=== PATIENT | male | born 1985 | race Caucasian/White ===

== ENCOUNTER 2024-02-14 09:28 | Outpatient (AMB) | payer BC, SELFPAY ==
--- NOTE | 2024-02-14 09:16 | MHC.PC.OV ---
Vital Signs 02/14/24 09:53 Height 6 ft 8.32 in Weight 278 lb BMI 30.3 BP 122/80 Blood Pressure Location Lt brachial Position Sitting Respiration 18 Pulse 74 Pulse Source Pulse Oximeter Temp 98.5 F Temp Source Oral Pulse Oximetry (%) 97 Oxygen Delivery Method Room Air Intake Visit Reasons: Discharge F[facility] 02[facility] Intake Note: New patient visit. Requesting refill on rescue inhaler. 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 Required: No Allergies gluten Allergy (Unknown, Verified 02/14/24 09:36) Unknown Medication List - Last Reconciled 02/14/24 by Maral Gould PA-C magnesium oxide 400 mg PO DAILY omeprazole 20 mg PO BID Tobacco use date assessed: 02/14/24 Dental Screening Dental Screen Date: 02/14/24 Did you have a dental visit in the last 12 months?: Yes Did you have a dental problem in the last 6 months where you did not have access to dental care?: No Was dental information given to patient?: Patient has dentist HPI Discharge F/U [facility] 02/10 HPI Details Patient is a 38-year-old male with a significant past medical history of elevated LFTs, alcoholic hepatitis, cirrhosis, celiac disease, hypertension, hyperlipidemia, GERD, restless leg syndrome, intermittent asthma, anxiety, ADD today to reestablish care. He was seen last March by myself after being discharged from the hospital following a lap cholecystectomy and common bile duct stone extraction with sphincterotomy. Psych: He was recently at an inpatient facility for his alcoholism. He went 12/11/23-01/11/24. He is currently living in sober house and following with a therapist. He took 90 days off of work and is trying hard to remain sober. He is currently struggling with sleeping and states that he would like to try something. He does not really want to see a psychiatrist but states that he will if he has to. He states while he was hospitalized a put him on Seroquel and Remeron but he did not like how this made him feel. States that they also trialed him on hydroxyzine which did nothing. GI: last seen by GI a few years ago but never really followed up with his cirrhosis. He was supposed to but states that he never really wanted to know what was going on. He states that the idea of having this makes him nervous. He states his abdomen feels fine. He denies any fluid retention, nausea or vomiting. He is trying to eat healthier. He still does experience heartburn in his on omeprazole twice a day. CV: Since quitting drinking his blood pressures have been normal. Today it is 122/80. PULM: With this season changes he does notice a little bit of his asthma at times. He states that he does not have any albuterol at home. [facility] Medical History (Updated 02/14/24 @ 13:15 by Maral Gould PA-C) GBS (Guillain [place] syndrome) Vitamin deficiency Steatosis, liver Snoring RLS (restless legs syndrome) Rib pain on right side PLMD (periodic limb movement disorder) Pleuritic pain Macrocytosis Insomnia Hyperlipidemia GERD (gastroesophageal reflux disease) JULIANNA (generalized anxiety disorder) Folic acid deficiency Elevated LFTs Elevated BP without diagnosis of hypertension Dyspnea Common bile duct stone Cirrhosis Celiac disease Axonal polyneuropathy ALT (SGPT) level raised Alcoholic hepatitis ADD (attention deficit disorder) Surgical History (Updated 02/14/24 @ 09:28 by Yany Hubbard [facility]) S/P laparoscopic cholecystectomy Social History Housing: House Patient Tobacco Use Status: Never used Tobacco e-Cigarette/Vaping Use: Currently Using Second Hand Smoke Exposure: No service: No Current occupational status: employed 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 How often do you have a drink containing alcohol?: Never (past) 3. How often do you have six or more drinks on one occasion?: Never Total Score: 0 Physical exam (Primary Care) Vital Signs: Last Vital Signs Temp 98.5 F 02/14/24 09:53 Pulse 74 02/14/24 09:53 Resp 18 02/14/24 09:53 BP 122/80 02/14/24 09:53 Pulse Ox 97 02/14/24 09:53 Oxygen Delivery Method Room Air 02/14/24 09:53 BMI result Body Mass Index 30.3 Tobacco/Smoking Status: Tobacco use Status Tobacco use date assessed 02/14/24 02/14/24 09:45 Patient Tobacco Use Status Never used Tobacco 02/14/24 09:45 e-Cigarette/Vaping Use Currently Using 02/14/24 09:45 Const Orientation/consciousness: patient oriented x3 HENMT Ears: hearing grossly normal bilaterally Neck Thyroid: Thyroid normal Lymphatic: no lymphadenopathy noted Resp Auscultation: clear to auscultation bilaterally Cardio Rate: regular rate Rhythm: regular rhythm Heart sounds: S1 normal heart sound present and S2 normal heart sound present GI Inspection: Yes normal to inspection Palpation (GI): Soft to palpation and Other GI palpation findings present (nontender, no cva tenderness) Auscultation: normoactive bowel sounds Rectal Exam - Male: Yes deferred Skin General skin exam: no rashes or lesions noted Neuro General: patient oriented x3, gait normal and no focal motor deficits Assessment and Plan Assessment & Plan (1) JULIANNA (generalized anxiety disorder): Code(s): F41.1 - Generalized anxiety disorder Plan: Currently following with a therapist and working on coping mechanisms. We will try trazodone to help him with sleep. Discussed risks and benefits and adverse effects of this medication. Follow up in 4-6 weeks. Sooner if needed. Referral to Behavioral Health placed. (2) Insomnia: Code(s): G47.00 - Insomnia, unspecified Plan: As above. (3) Cirrhosis: Code(s): K74.60 - Unspecified cirrhosis of liver Qualifiers: Hepatic cirrhosis type: alcoholic cirrhosis Plan: Ultrasound ordered. Labs ordered. Referral to GI. (4) Celiac disease: Code(s): K90.0 - Celiac disease Plan: As above (5) GERD (gastroesophageal reflux disease): Code(s): K21.9 - Gastro-esophageal reflux disease without esophagitis Qualifiers: Esophagitis bleeding: without hemorrhage Esophagitis presence: with esophagitis Qualified Code(s): K21.00 - Gastro-esophageal reflux disease with esophagitis, without bleeding Plan: Continue current regimen (6) Vitamin deficiency: Code(s): E56.9 - Vitamin deficiency, unspecified Plan: We will recheck labs today. (7) Alcohol abuse: Code(s): F10.10 - Alcohol abuse, uncomplicated Plan: Congratulated him on sobriety. Requests STD screening today as well but is asymptomatic. States that he did have a few encounters while he was drinking and wants to be sure. Orders: Orders Basic Metabolic Panel Today F41.1 - Generalized anxiety disorder, K74.60 - Unspecified cirrhosis of liver, K90.0 - Celiac disease Lipid Panel Today F41.1 - Generalized anxiety disorder, K74.60 - Unspecified cirrhosis of liver, K90.0 - Celiac disease Liver Panel Today F41.1 - Generalized anxiety disorder, K74.60 - Unspecified cirrhosis of liver, K90.0 - Celiac disease, R79.89 - Other specified abnormal findings of blood chemistry Magnesium Today E56.9 - Vitamin deficiency, unspecified, F41.1 - Generalized anxiety disorder, K21.00 - Gastro-esophageal reflux disease with esophagitis, without bleeding, K74.60 - Unspecified cirrhosis of liver, K90.0 - Celiac disease IRON PROFILE Today E56.9 - Vitamin deficiency, unspecified, F41.1 - Generalized anxiety disorder, K21.00 - Gastro-esophageal reflux disease with esophagitis, without bleeding, K74.60 - Unspecified cirrhosis of liver, K90.0 - Celiac disease Hepatitis C Antibody Today Z11.3 - Encounter for screening for infections with a predominantly sexual mode of transmission HIV Ab/Ag Today Z11.3 - Encounter for screening for infections with a predominantly sexual mode of transmission CT NG by PCR Today Z11.3 - Encounter for screening for infections with a predominantly sexual mode of transmission Complete Blood Count Auto Diff Today F41.1 - Generalized anxiety disorder, K74.60 - Unspecified cirrhosis of liver, K90.0 - Celiac disease TSH reflex Free T4 Today F41.1 - Generalized anxiety disorder, K74.60 - Unspecified cirrhosis of liver, K90.0 - Celiac disease UA CC w/rflx Micro + Cult Today F41.1 - Generalized anxiety disorder, K74.60 - Unspecified cirrhosis of liver, K90.0 - Celiac disease US abdomen complete Today F41.1 - Generalized anxiety disorder, K74.60 - Unspecified cirrhosis of liver, K90.0 - Celiac disease Vitamin B12 and Folate Today E56.9 - Vitamin deficiency, unspecified, F41.1 - Generalized anxiety disorder, K21.00 - Gastro-esophageal reflux disease with esophagitis, without bleeding, K74.60 - Unspecified cirrhosis of liver, K90.0 - Celiac disease Ferritin Today E56.9 - Vitamin deficiency, unspecified, F41.1 - Generalized anxiety disorder, K21.00 - Gastro-esophageal reflux disease with esophagitis, without bleeding, K74.60 - Unspecified cirrhosis of liver, K90.0 - Celiac disease Vitamin D 1,25 dihydroxy Today E56.9 - Vitamin deficiency, unspecified Syphilis Screen Today Z11.3 - Encounter for screening for infections with a predominantly sexual mode of transmission Referrals Behavioral Health Referral F10.10 - Alcohol abuse, uncomplicated, F41.1 - Generalized anxiety disorder, G47.00 - Insomnia, unspecified Medications: New omeprazole 20 mg PO BID 180 caps 3RF cetirizine (Zyrtec) 10 mg PO DAILY 90 tabs 2RF magnesium oxide 400 mg PO DAILY 90 caps 3RF trazodone 50 mg PO BEDTIME 90 tabs 2RF albuterol sulfate 90 mcg/actuation 2 puffs inhalation Q4-6H PRN 8.5 grams 0RF shortness of breath or wheezing Coding Level of Care Code Est Pt Level 4 (76726) Complex EM visit Add On G2211 Diagnoses JULIANNA (generalized anxiety disorder) F41.1 Insomnia G47.00 Cirrhosis K74.60 Hepatic cirrhosis type: alcoholic cirrhosis Celiac disease K90.0 Gastroesophageal reflux disease with esophagitis without hemorrhage K21.00 Esophagitis bleeding: without hemorrhage Esophagitis presence: with esophagitis Vitamin deficiency E56.9 Alcohol abuse F10.10
[2024-02-14 09:53] VITALS: BP 122/80; PULSE 74; RESP 18; TEMP 36.9; O2SAT 97; BMI 30.3
== END 2024-02-14 10:19 | disposition home or self-care (01) ==
PROVIDERS: PCP Internal Medicine; Visit Provider Physician Assistant
DX: F41.1 Generalized anxiety disorder (principal); G47.00 Insomnia, unspecified; K74.60 Unspecified cirrhosis of liver; K90.0 Celiac disease; K21.00 Gastro-esophageal reflux disease with esophagitis, without bleeding; E56.9 Vitamin deficiency, unspecified; F10.10 Alcohol abuse, uncomplicated
CPT/HCPCS: 99214

== ENCOUNTER 2024-02-14 10:31 | Outpatient (REF) | payer BC, SELFPAY ==
[2024-02-14 14:28] LABS: MANUAL DIFF FLAG NO
[2024-02-14 14:34] LABS: Appearance Urine Turbid; Color Urine Yellow; Glucose Urine UA Negative (Negative); Leukocyte Esterase Urine Negative (Negative); Nitrite Urine Negative (Negative); PH 5.5 (5.0-9.0); Specific Gravity - Urine >= 1.030 (1.005-1.025); Urine Blood Negative (Negative); Urine Ketones Trace mg/dL (Negative); Urine Protein Negative (Neg-Trace)
[2024-02-14 14:36] LABS: Basophils Percent Auto 0.8 % (0-2); Eosinophils Absolute Auto 0.1 X10*3/uL (0.0-0.4); Eosinophils Percent Auto 3.8 % (0-4); Hematocrit 43.1 % (42.0-52.0); Hemoglobin 15.2 g/dl (14.0-18.0); Imm Gran Abs Auto 0.01 X10*3/uL (0.00-0.03); Imm Gran Pct Auto 0.3 % (0.0-0.4); Lymphocytes Absolute Auto 1.1 X10*3/uL (1.2-4.9); Lymphocytes Percent Auto 29.8 % (20-40); Mean Corpuscular HGB Conc 35.3 g/dl (31.0-36.0); Mean Corpuscular Hemoglobin 33.2 pg (27.0-33.0); Mean Corpuscular Volume 94.1 fL (80.0-98.0); Mean Platelet Volume 10.3 fL (9.4-12.4); Monocytes Absolute Auto 0.4 X10*3/uL (0.1-1.2); Monocytes Percent Auto 10.7 % (2-11); Neutrophils Percent Auto 54.6 % (45-73); Platelet Count 140 X10*3/uL (160-400); Red Blood Count 4.58 X10*6/uL (4.60-5.80); Red Cell Distribution Width 11.7 % (11.0-16.0); White Blood Count 3.7 X10*3/uL (4.8-10.8)
[2024-02-14 14:58] LABS: Alanine Aminotransferase 17 U/L (0-40); Albumin Level 4.2 g/dL (3.5-5.0); Alkaline Phosphatase 41 U/L (39-117); Anion Gap 10 (12-20); Aspartate Amino Transferase 18 U/L (5-37); Bilirubin Direct 0.7 mg/dL (0.0-0.5); Bilirubin Total 2.6 mg/dL (0.0-1.0); Blood Urea Nitrogen 14 mg/dL (9-16); Calcium 9.7 mg/dL (8.4-10.2); Carbon Dioxide 28 mmol/L (22-29); Chloride 105 mmol/L (96-108); Cholesterol 210 mg/dL (<200); Estimated Glomerular Filt Rate > 60; Glucose Random 102 mg/dL (60-115); HDL Cholesterol 35 mg/dL (>40); Iron 205 mcg/dL (45-160); LDL Cholesterol Calculated 154 mg/dL (<100); Magnesium 1.9 mg/dL (1.6-2.6); Percent Iron Saturation 70 % (15-50); Potassium 4.1 mmol/L (3.3-5.1); Sodium 139 mmol/L (135-145); Total Iron Binding Capacity 294 mcg/dL (228-428); Total Protein 7.3 g/dL (6.5-8.0); Triglycerides 108 mg/dL (<150); Unsaturated Iron Binding 89 ug/dL
[2024-02-14 15:17] LABS: Vitamin B12 265 pg/mL (200-900)
[2024-02-14 15:18] LABS: Ferritin 267 ng/mL (20-250); TSH reflex Free T4 2.07 uIU/mL (0.32-4.0)
[2024-02-14 16:03] LABS: CT PCR NOT DETECTED (Not Detect.); NG PCR NOT DETECTED (Not Detect.)
[2024-02-15 08:09] LABS: HIV AB/AG Nonreactive (Nonreactive); HIV Num 1 0.06 S/CO (0.00-0.99); ~Hepatitis C Antibody Nonreactive (Nonreactive)
[2024-02-15 08:17] LABS: Syphilis Screen Nonreactive (Nonreactive)
[2024-02-18 13:28] LABS: VITAMIN D (1,25 OH) D3 33 pg/mL; Vit D (1,25-Dihydroxy) Total 33 pg/mL (18-72); Vitamin D (1,25 OH) D2 <8 pg/mL
== END 2024-02-14 10:32 | disposition home or self-care (01) ==
LOC: HO.WFDLDS 10:31
PROVIDERS: Visit Provider Physician Assistant
DX: K74.60 Unspecified cirrhosis of liver (principal); K90.0 Celiac disease; F41.1 Generalized anxiety disorder; Z11.3 Encounter for screening for infections with a predominantly sexual mode of transmission; K21.00 Gastro-esophageal reflux disease with esophagitis, without bleeding; E56.9 Vitamin deficiency, unspecified; R79.89 Other specified abnormal findings of blood chemistry
CPT/HCPCS: 80048; 80061; 80076; 81003; 82607; 82652; 82728; 82746; 83540; 83735; 84443; 85025; 86780; 86803; 87389; 87491; 87591

== ENCOUNTER 2024-02-22 08:39 | Outpatient (REF) | payer BC, SELFPAY ==
--- NOTE | ~2024-02-22 | US_ITS ---
EXAMINATION: US ABDOMEN COMPLETE CLINICAL INFORMATION: Unspecified cirrhosis of the liver. COMPARISON: None available. TECHNIQUE: Real-time imaging of the abdominal viscera. FINDINGS: PANCREAS: The visualized portions of the pancreas are unremarkable but the majority of the gland is obscured by bowel gas. ABDOMINAL AORTA: The mid abdominal aorta was obscured by bowel gas. There was no proximal or distal aneurysm. INFERIOR VENA CAVA: Visualized portions are normal. LIVER: The liver is enlarged measuring 19.1 cm in cephalocaudad dimension. The liver contour is normal. There is borderline increased liver parenchymal echogenicity suggesting hepatic steatosis. No focal hepatic lesion. There is no intrahepatic biliary duct dilatation seen. GALLBLADDER: Surgically absent. COMMON BILE DUCT: Normal in caliber measuring 0.3 cm in diameter. RIGHT KIDNEY: Normal. No hydronephrosis. No renal calculi or focal parenchymal lesions. The kidney measures 11.6 cm in maximum dimension. LEFT KIDNEY: Normal. No hydronephrosis. No renal calculi or focal parenchymal lesions. The kidney measures 13.9 cm in maximum dimension. SPLEEN: The spleen is enlarged measuring 17.4 cm in maximum dimension. FREE FLUID: None. US/US abdomen complete IMPRESSION: Hepatosplenomegaly with borderline increased echogenicity of the liver suggesting hepatic steatosis/parenchymal disease. Electronically signed by: Meet Li MD 02/28/2024 02:10 PM EDT
== END 2024-02-22 08:40 | disposition home or self-care (01) ==
LOC: HO.US 08:39
PROVIDERS: PCP Internal Medicine; Visit Provider Physician Assistant
DX: K74.60 Unspecified cirrhosis of liver (principal); K90.0 Celiac disease; F41.1 Generalized anxiety disorder
CPT/HCPCS: 76700

== ENCOUNTER 2024-03-21 15:10 | Outpatient (AMB) | payer BC, SELFPAY ==
--- NOTE | 2024-03-21 15:13 | MHC.PC.OV ---
Vital Signs 03/21/24 15:14 Height 6 ft 8.32 in Weight 276 lb 2 oz BMI 30.1 BP 118/82 Blood Pressure Location Rt brachial Position Sitting Respiration 14 Pulse 68 Pulse Source Pulse Oximeter Pulse Oximetry (%) 97 Oxygen Delivery Method Room Air Intake Visit Reasons: med Intake Note: Follow up Armature Tester Required: No Allergies gluten Allergy (Unknown, Verified 03/21/24 15:13) Unknown Medication List - Last Reconciled 03/21/24 by Maral Gould PA-C albuterol sulfate 90 mcg/actuation 2 puffs inhalation Q4-6H PRN cetirizine (Zyrtec) 10 mg PO DAILY magnesium oxide 400 mg PO DAILY montelukast (Singulair) 10 mg PO BEDTIME omeprazole 20 mg PO BID trazodone 200 mg (2 x 100 mg) PO BEDTIME 90 days Tobacco use date assessed: 02/14/24 Dental Screening Dental Screen Date: 02/14/24 HPI med HPI Details Patient is a 38-year-old male who presents today for a follow up. He states that he has been sober for 101 days. Psych: Has been referred to behavioral health. Trazodone 150 mg is effective but takes a bone hour so to work. He is wondering if we could increase the dose a little. GI: History of cirrhosis. Last liver ultrasound did show fatty liver. His LFTs have improved from [facility] labs. -he asked me today to check his antibodies for his history of celiac disease. States that recently he has been eating gluten and not having any issues with it. Heme: Last iron and ferritin is elevated. He states that he saw a print inspector at [facility] who told him he did not need to do anything for this. [facility] Medical History (Updated 03/21/24 @ 15:36 by Maral Gould PA-C) GBS (Guillain [place] syndrome) Vitamin deficiency Steatosis, liver Snoring RLS (restless legs syndrome) Rib pain on right side PLMD (periodic limb movement disorder) Pleuritic pain Macrocytosis Insomnia Hyperlipidemia GERD (gastroesophageal reflux disease) JULIANNA (generalized anxiety disorder) Folic acid deficiency Elevated LFTs Elevated BP without diagnosis of hypertension Dyspnea Common bile duct stone Cirrhosis Celiac disease Axonal polyneuropathy ALT (SGPT) level raised Alcoholic hepatitis ADD (attention deficit disorder) Surgical History (Updated 02/14/24 @ 09:28 by MAYELIN Swain S/P laparoscopic cholecystectomy Social History Housing: House Patient Tobacco Use Status: Never used Tobacco e-Cigarette/Vaping Use: Currently Using Second Hand Smoke Exposure: No service: No Current occupational status: employed 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 1. Little interest or pleasure in doing things: not at all 2. Feeling down, depressed, or hopeless: not at all 3. Trouble falling or staying asleep, or sleeping too much: several days 4. Feeling tired or having little energy: several days 5. Poor appetite or overeating: several days 6. Feeling bad about yourself - or that you are a failure or have let yourself or your family down: several days 7. Trouble concentrating on things, such as reading the newspaper or watching television: several days 8. Moving or speaking so slowly that other people could have noticed. Or the opposite - being so fidgety or restless that you have been moving around a lot more than usual: not at all 9. Thoughts that you would be better off or of hurting yourself in some way: not at all Total score: 5 Source: Developed by Drs. Quirino Schwab, Magy Patel, Rainer Jeffrey and colleagues, with an educational ana from [employer] ([email or web address]). Thrive Questionnaire I am a: Patient What is your living situation today?: I have a steady place to live Within the past 12 months, did the food you bought not last and you didn't have the money to get more?: Never true Within the past 12 months, did you worry whether your food would run out before you got money to buy more?: Never true Do you have trouble paying for medicines?: No Do you have trouble getting transportation to medical appointments?: No Do you have trouble paying your heating and electricity bill?: No Do you have trouble taking care of your child, family member or friend?: No Do you have trouble with day-to-day activities such as bathing, preparing meals, shopping, managing finances, etc.?: No Are you currently unemployed and looking for a job?: No Are you interested in more education?: Yes Please select the resources that you would like help with: None Currently or been in a relationship where the following occur: No concerns reported THRIVE Score: 0 AUDIT C Alcohol Use Questionnaire (AUDIT-C) 1. How often do you have a drink containing alcohol?: Never Total Score: 0 JULIANNA-7 AMB Questionnaire JULIANNA-7 Feeling nervous, anxious, or on edge: 1 = Several days Not being able to stop or control worryin = Several days Worrying too much about different things: 1 = Several days Trouble relaxin = Several days Being so restless that it is hard to sit still: 1 = Several days Becoming easily annoyed or irritable: 1 = Several days Feeling afraid as if something awful might happen: 0 = Not at all Total JULIANNA-7 score (0-4 normal; 5-9 mild; 10-14 moderate; 15-21 severe): 6 Source: Developed by Drs. Quirino Schwab, Magy Patel, Rainer Jeffrey and colleagues, with an educational ana from [email or web address] ([email or web address]). Physical exam (Primary Care) Vital Signs: Last Vital Signs Pulse 68 03/21/24 15:14 Resp 14 03/21/24 15:14 BP 118/82 03/21/24 15:14 Pulse Ox 97 03/21/24 15:14 Oxygen Delivery Method Room Air 03/21/24 15:14 BMI result Body Mass Index 30.1 Tobacco/Smoking Status: Tobacco use Status Tobacco use date assessed 02/14/24 03/21/24 15:20 Patient Tobacco Use Status Never used Tobacco 03/21/24 15:20 e-Cigarette/Vaping Use Currently Using 03/21/24 15:20 PHQ-9: PHQ-9 Score PHQ-9: Total score 5 03/21/24 15:20 Currently or been in a relationship where the following occur: No concerns reported Const Orientation/consciousness: patient oriented x3 HENMT Ears: hearing grossly normal bilaterally Neck Thyroid: Thyroid normal Lymphatic: no lymphadenopathy noted Resp Auscultation: clear to auscultation bilaterally Cardio Rate: regular rate Rhythm: regular rhythm Heart sounds: S1 normal heart sound present and S2 normal heart sound present GI Inspection: Yes normal to inspection Palpation (GI): Soft to palpation and Other GI palpation findings present (nontender, no cva tenderness) Auscultation: normoactive bowel sounds Rectal Exam - Male: Yes deferred Skin General skin exam: no rashes or lesions noted Neuro General: patient oriented x3, gait normal and no focal motor deficits Results Reviewed Results Reviewed: Laboratory Tests 02/14/24 10:37 WBC 3.7 L RBC 4.58 L Hgb 15.2 Hct 43.1 MCV 94.1 MCH 33.2 H Plt Count 140 L Sodium 139 Potassium 4.1 Chloride 105 Carbon Dioxide 28 Anion Gap 10 L BUN 14 Creatinine 0.91 Estimated GFR > 60 Iron 205 H % Saturation 70 H Ferritin 267 H Total Bilirubin 2.6 H Direct Bilirubin 0.7 H AST 18 ALT 17 Alkaline Phosphatase 41 Total Protein 7.3 Albumin 4.2 Triglycerides 108 Cholesterol 210 H LDL Cholesterol, Calc 154 H HDL Cholesterol 35 L FINDINGS: PANCREAS: The visualized portions of the pancreas are unremarkable but the majority of the gland is obscured by bowel gas. ABDOMINAL AORTA: The mid abdominal aorta was obscured by bowel gas. There was no proximal or distal aneurysm. INFERIOR VENA CAVA: Visualized portions are normal. LIVER: The liver is enlarged measuring 19.1 cm in cephalocaudad dimension. The liver contour is normal. There is borderline increased liver parenchymal echogenicity suggesting hepatic steatosis. No focal hepatic lesion. There is no intrahepatic biliary duct dilatation seen. GALLBLADDER: Surgically absent. COMMON BILE DUCT: Normal in caliber measuring 0.3 cm in diameter. RIGHT KIDNEY: Normal. No hydronephrosis. No renal calculi or focal parenchymal lesions. The kidney measures 11.6 cm in maximum dimension. LEFT KIDNEY: Normal. No hydronephrosis. No renal calculi or focal parenchymal lesions. The kidney measures 13.9 cm in maximum dimension. SPLEEN: The spleen is enlarged measuring 17.4 cm in maximum dimension. FREE FLUID: None. US/US abdomen complete IMPRESSION: Hepatosplenomegaly with borderline increased echogenicity of the liver suggesting hepatic steatosis/parenchymal disease. Electronically signed by: Meet Li MD 02/28/2024 02:10 PM EDT RP Coding Level of Care Code Est Pt Level 4 (09193) Complex EM visit Add On G2211 Diagnoses Cirrhosis K74.60 Hepatic cirrhosis type: alcoholic cirrhosis Iron excess E83.19 Celiac disease K90.0 Insomnia G47.00 Assessment & Plan Assessment & Plan (1) Cirrhosis: Code(s): K74.60 - Unspecified cirrhosis of liver Category: Medical Qualifiers: Hepatic cirrhosis type: alcoholic cirrhosis Plan: Labs ordered. Elastography ordered. Seeing GI 05/13 (2) Iron excess: Code(s): E83.19 - Other disorders of iron metabolism Category: Medical Plan: We will check hemochromatosis. Recheck labs today. If elevated we will refer to Hematology (3) Celiac disease: Code(s): K90.0 - Celiac disease Category: Medical Plan: Antibody testing ordered (4) Insomnia: Code(s): G47.00 - Insomnia, unspecified Category: Medical Plan: Increase trazodone. Follow up in 3 months. Sooner if needed. Patient understands and agrees with the plan. Orders: Orders IRON PROFILE Today E83.19 - Other disorders of iron metabolism, K74.60 - Unspecified cirrhosis of liver Ferritin Today E83.19 - Other disorders of iron metabolism, K74.60 - Unspecified cirrhosis of liver DNA Analysis Hemochromatosis Today E83.19 - Other disorders of iron metabolism, K74.60 - Unspecified cirrhosis of liver Basic Metabolic Panel Today E83.19 - Other disorders of iron metabolism, K74.60 - Unspecified cirrhosis of liver Liver Panel Today E83.19 - Other disorders of iron metabolism, K74.60 - Unspecified cirrhosis of liver US abdomen comp w elastography Today E83.19 - Other disorders of iron metabolism, F10.10 - Alcohol abuse, uncomplicated, K74.60 - Unspecified cirrhosis of liver Immunoglobulin A Today K90.0 - Celiac disease Transglutaminase Ab IgG Today K90.0 - Celiac disease Endomysial IgA rflx Titer Today K90.0 - Celiac disease Medications: New trazodone 200 mg (2 x 100 mg) PO BEDTIME 90 days 180 tabs 1RF Discontinued trazodone Discontinued Reason: Doctor's Order 50 mg PO BEDTIME 90 tabs 2RF
[2024-03-21 15:14] VITALS: BP 118/82; PULSE 68; RESP 14; O2SAT 97; BMI 30.1
== END 2024-03-21 15:40 | disposition home or self-care (01) ==
PROVIDERS: PCP Internal Medicine; Visit Provider Physician Assistant
DX: K74.60 Unspecified cirrhosis of liver (principal); E83.19 Other disorders of iron metabolism; K90.0 Celiac disease; G47.00 Insomnia, unspecified

== ENCOUNTER → 2024-03-21 15:10 | Outpatient (BNVA) | payer BC, SELFPAY | PROVIDERS: PCP Internal Medicine; Visit Provider Physician Assistant ==

== ENCOUNTER 2024-03-21 15:43 | Outpatient (REF) | payer BC, SELFPAY ==
[2024-03-21 18:06] LABS: Alanine Aminotransferase 26 U/L (0-40); Albumin Level 4.8 g/dL (3.5-5.0); Alkaline Phosphatase 50 U/L (39-117); Anion Gap 12 (12-20); Aspartate Amino Transferase 25 U/L (5-37); Bilirubin Direct 0.6 mg/dL (0.0-0.5); Bilirubin Total 3.7 mg/dL (0.0-1.0); Blood Urea Nitrogen 9 mg/dL (9-16); Calcium 9.7 mg/dL (8.4-10.2); Carbon Dioxide 30 mmol/L (22-29); Chloride 101 mmol/L (96-108); Estimated Glomerular Filt Rate > 60; Glucose Random 108 mg/dL (60-115); Iron 72 mcg/dL (45-160); Percent Iron Saturation 23 % (15-50); Potassium 3.6 mmol/L (3.3-5.1); Sodium 139 mmol/L (135-145); Total Iron Binding Capacity 316 mcg/dL (228-428); Unsaturated Iron Binding 244 ug/dL
[2024-03-21 18:22] LABS: Ferritin 267 ng/mL (20-250)
[2024-03-25 07:34] LABS: Immunoglobulin A 323 mg/dL (47-310)
[2024-03-26 08:02] LABS: Transglutaminase Ab IgG 49.1 U/mL
[2024-03-27 22:53] LABS: Endomysial IgA Antibody Negative (Negative)
== END 2024-03-21 15:44 | disposition home or self-care (01) ==
LOC: HO.WFDLDS 15:43
PROVIDERS: Visit Provider Physician Assistant
DX: K74.60 Unspecified cirrhosis of liver (principal); E83.19 Other disorders of iron metabolism; K90.0 Celiac disease; G47.00 Insomnia, unspecified; Z13.39 Encounter for screening examination for other mental health and behavioral disorders
CPT/HCPCS: 36415; 80048; 80076; 81256; 82728; 82784; 83540; 86231; 86364; 96127

== ENCOUNTER 2024-04-11 08:11 | Outpatient (REF) | payer BC, SELFPAY ==
--- NOTE | ~2024-04-11 | US_ITS ---
EXAMINATION: US COMPLETE ABDOMEN WITH LIVER ELASTOGRAPHY CLINICAL INFORMATION: Unspecified cirrhosis of liver. Alcohol abuse. COMPARISON: 02/22/2024. TECHNIQUE: Real-time imaging of the abdominal viscera. Noninvasive ultrasound liver fibrosis assessment is performed using Joan ElastPQ point quantification shear wave elastography (pSWE) with a C5-2 MHz transducer. Multiple elastography samples are obtained. FINDINGS: PANCREAS: Normal. The visualized pancreatic head and body are normal in appearance. The remainder of the pancreas is obscured from visualization by the overlying bowel gas. ABDOMINAL AORTA: The proximal and distal aortic segments are normal in caliber. Mid aspect is obscured by gas. INFERIOR VENA CAVA: Visualized portions are normal. LIVER: Echogenic with coarsened echotexture. Right hepatic lobe measures 18.8 cm. Left hepatic lobe measures 12.5 cm. No focal hepatic abnormality. Subtle lobulation of the hepatic contour. Portal flow is hepatopedal. Shear wave liver elastography median stiffness is 1.72 m/s (reference: normal median stiffness is 1.3 m/s or less). IQR/median stiffness to assess sampling precision is 0.10 (reference: good quality data set is IQR/median stiffness of 0.15 or less). This represents a good quality data set. GALLBLADDER: Post cholecystectomy. COMMON BILE DUCT: Normal in caliber measuring 0.7 cm in diameter. RIGHT KIDNEY: Normal. No hydronephrosis. No renal calculi or focal parenchymal lesions. The kidney measures 11.3 cm in maximum dimension. LEFT KIDNEY: Normal. No hydronephrosis. No renal calculi or focal parenchymal lesions. The kidney measures 12.6 cm in maximum dimension. SPLEEN: Enlarged. The spleen measures 17.1 cm in maximum dimension. No focal lesion. FREE FLUID: None. US/US abdomen comp w elastography IMPRESSION: 1. Mild hepatomegaly. Hepatic coarsened and increased echogenicity, with subtle nodularity of the hepatic contour suggesting cirrhotic changes with or without fatty infiltration. No focal hepatic abnormality or biliary dilatation. Cholecystectomy. 2. Liver elastography: Measurements are suggestive of compensated advanced chroniic liver disease but need further test for confirmation. 3. Splenomegaly, unchanged. 4. Remainder of the exam is normal. REFERENCE: Society of Radiologists in Ultrasound Liver Stiffness Thresholds (2020): LIVER STIFFNESS THRESHOLDS: *Liver Stiffness equal or less than 1.3 m/s: High probability of being normal. *Liver Stiffness less than 1.7 m/s: In the absence of other known clinical signs, rules out compensated advanced chronic liver disease. *Liver Stiffness 1.7-2.1 m/s: Suggestive of compensated advanced chronic liver disease but need further test for confirmation. *Liver Stiffness over 2.1 m/s: Rules in compensated advanced chronic liver disease. *Liver Stiffness over 2.4 m/s: Suggestive of clinically significant portal hypertension. QUALITY OF DATA SET: *IQR/Median value equal or less than 0.15 implies a quality data set. *IQR/Median value over 0.15 implies a poor quality data set. SIGNIFICANT CHANGE FROM PRIOR EXAM: Significant change if liver stiffness measurement is 10% or greater from prior exam. OTHER CONSIDERATIONS: The stage of liver fibrosis may be overestimated in the setting of acute hepatitis, liver inflammation, elevated liver function tests, hepatic vascular congestion, obstructive cholestasis, non-fasting state, and infiltrative diseases such as amyloidosis and lymphoma. In some patients with NAFLD, the liver stiffness thresholds for compensated advanced chronic liver disease may be lower. In causes other than viral hepatitis and NAFLD, liver stiffness thresholds are not well established. Electronically signed by: Adrián Macias MD 05/14/2024 12:46 PM [facility] [place], [place]
== END 2024-04-11 08:12 | disposition home or self-care (01) ==
LOC: HO.US 08:11
PROVIDERS: PCP Physician Assistant; Visit Provider Physician Assistant
DX: K74.60 Unspecified cirrhosis of liver (principal); E83.19 Other disorders of iron metabolism; F10.10 Alcohol abuse, uncomplicated
CPT/HCPCS: 76700; 76981

== ENCOUNTER → 2024-04-11 08:12 | Outpatient (BNV) | payer BC, SELFPAY | PROVIDERS: PCP Physician Assistant; Visit Provider Radiology Diagnostic Radiology | DX: K74.60 Unspecified cirrhosis of liver (principal); E83.19 Other disorders of iron metabolism; F10.10 Alcohol abuse, uncomplicated | CPT/HCPCS: 76700 ==

== ENCOUNTER 2024-05-13 08:52 | Outpatient (AMB) | payer BC, SELFPAY ==
--- NOTE | 2024-05-13 09:05 | A.OFFVIS_ITS ---
Vital Signs 05/13/24 09:06 Height 6 ft 8 in Weight 260 lb 2.327 oz BMI 28.6 BP 123/88 Blood Pressure Location Lt brachial Position Sitting Pulse 75 Intake Visit Reasons: cirrhosis of liver Intake Note: Satinder presents in the office as a new patient for Cirrhosis. CC: He states that he stopped drinking 5 months ago and was diagnosed with fatty liver - stopped drinking December 10 - trying to be healthy and get his liver back to normal! [employer] Required: No Allergies gluten Allergy (Unknown, Verified 05/13/24 09:06) Unknown HPI Comments Details: 38 y.o M with PMH of etOH use disorder in early remission, hx of guillian barre syndrome 2021, celiac dx, hx of gallstones s/p ERCP and CCY 2022, who is here for further evaluation of liver disease. Reports drinking daily almost 48 oz o chardonnay x years. Quit date December 11 2023. Had elastography in Mar at 3 month sobriety ewa but results pending. Thrombocytopenia on labs noted, LFTs normal except bili (indirect>direct). Had EUS/ERCP in 2022 without any varices at that time. Around 4-5 years ago was first diagnosed with etOH assoc with liver disease. Fam hx also + for hemochromatosis on maternal side. Pt reports seeing Dr Sotomayor many years ago for phlebotomy. Most recent iron studies with high ferritin but normal iron sat. [facility] Medical History (Updated 05/13/24 @ 10:38 by Mariel Casarez MD) GBS (Guillain [place] syndrome) Vitamin deficiency Steatosis, liver Snoring RLS (restless legs syndrome) Rib pain on right side PLMD (periodic limb movement disorder) Pleuritic pain Macrocytosis Insomnia Hyperlipidemia GERD (gastroesophageal reflux disease) JULIANNA (generalized anxiety disorder) Folic acid deficiency Elevated LFTs Elevated BP without diagnosis of hypertension Dyspnea Common bile duct stone Cirrhosis Celiac disease Axonal polyneuropathy ALT (SGPT) level raised Alcoholic hepatitis ADD (attention deficit disorder) Surgical History (Updated 05/13/24 @ 09:07 by KIM Holt) History of esophagogastroduodenoscopy (EGD) S/P laparoscopic cholecystectomy Social History Housing: House Patient Tobacco Use Status: Never used Tobacco e-Cigarette/Vaping Use: Currently Using Second Hand Smoke Exposure: No service: No Current occupational status: employed 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 Current occupational exposures/hazards: No Cognitive needs: No Hearing needs: No Vision needs: No Review of Systems Const All systems reviewed & are unremarkable except as noted in HPI and below Physical Exam Vital Signs: Last Vital Signs Pulse 75 05/13/24 09:06 BP 123/88 05/13/24 09:06 BMI result Body Mass Index 28.6 No apparent distress Nonicteric Abdomen soft, nondistended Alert and oriented x3, normal gait Assessment & Plan Assessment & Plan (1) Celiac disease: Code(s): K90.0 - Celiac disease Category: Medical (2) Chronic liver disease: Code(s): K76.9 - Liver disease, unspecified Category: Medical (3) 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 Hx of iron overload is unclear and will favor biopsy to assess both the degree of fibrosis as well as for iron deposition. Otherwise, encouraged on staying away from etOH completely. Plan: - Cont abstainence from etOH - Pt to confirm fam hx of HH at next vist - Lifestyle modifications to prevent non-etOH fatty liver disease progression discussed - CBC, CMP, INR in 4 weeks - Elastography results pending - If platelets do not recover and/or spleen enlarged on elasto, will need EGD for variceal screening - Will review indication for liver bx at next visit. In terms of celiac disease, dx in his 20s. Is not completely GF but occ gluten does not bother him. Vit D reviewed. Plan: - GFD - Dexa scan - Can consider EGD for repeat small bowel bx Follow up 1 month Orders: Orders XR DEXA axial skeleton Today K90.0 - Celiac disease Complete Blood Count no Diff 1 Month K76.9 - Liver disease, unspecified Comprehensive Met. Panel 1 Month K76.9 - Liver disease, unspecified Prothrombin Time INR 1 Month K76.9 - Liver disease, unspecified IRON PROFILE 1 Month K76.9 - Liver disease, unspecified Ferritin 1 Month K76.9 - Liver disease, unspecified Coding Level of Care Code New Pt Level 5 (38530) Complex EM visit Add On G2211 Diagnoses Celiac disease K90.0 Chronic liver disease K76.9 Hemochromatosis carrier Z14.8 Iron excess E83.19 Alcohol use disorder in remission F10.91
[2024-05-13 09:06] VITALS: BP 123/88; PULSE 75; BMI 28.6
== END 2024-05-13 10:13 | disposition home or self-care (01) ==
PROVIDERS: PCP Internal Medicine; Visit Provider Internal Medicine
DX: K90.0 Celiac disease (principal); K76.9 Liver disease, unspecified; E83.19 Other disorders of iron metabolism; Z14.8 Genetic carrier of other disease; F10.91 Alcohol use, unspecified, in remission
CPT/HCPCS: 99204

== ENCOUNTER 2024-05-22 08:05 | Outpatient (REF) | payer BC, SELFPAY ==
--- NOTE | ~2024-05-22 | MM_ITS ---
EXAMINATION: BONE DENSITOMETRY CLINICAL INDICATION: Celiac disease. COMPARISON: This is the patient's baseline examination. TECHNIQUE: Using a Pocketbook DXA System (software version: 13.1) manufactured by [employer], dual-energy x-ray absorptiometry was performed of the lumbar spine and left hip. The images are of good technical quality. Based on ISCD (International Society for Clinical Densitometry) standards of reporting, Z-scores instead of T-scores are reported in this male patient younger than age 50. Summary results are attached. FINDINGS: LEFT FEMUR, NECK: BMD 0.976 g/cm2, T-score -0.7, Z-score -0.9, Z-score within expected range for age. LEFT FEMUR, TOTAL: BMD 1.111 g/cm2, T-score 0.1, Z-score -0.2, Z-score within expected range for age. AP SPINE L1-L4: BMD 1.177 g/cm2, T-score -0.4, Z-score -1.1, Z-score within expected range for age. IDENTIFIED RISK FACTORS: Alcohol use, secondary osteoporosis (intestinal or bowel disease, not IBS), secondary osteoporosis (chronic liver disease). HISTORY OF FRACTURE: None listed. MEDICATIONS: Vitamin D. MM/XR DEXA axial skeleton IMPRESSION: 1. DIAGNOSIS: Based on the lowest Z-score value of -1.1 in the lumbar spine, the patient's bone density is within the expected range for age. 2. 10-YEAR FRACTURE RISK PREDICTION, FRAX: Not performed in this patient outside the age range of 50-90 years. 3. Treatment Recommendations: NOF guidelines recommend consideration for treatment in postmenopausal women and men age 50 and older presenting with the following: -A hip or vertebral (clinical or morphometric) fracture. -T-score less than or equal to -2.5 at the femoral neck or spine after appropriate evaluation to exclude secondary causes. -Low bone mass at the hip or spine and a 10-year fracture probability by FRAX of greater than or equal to 3% for hip fracture or greater than or equal to 20% for major osteoporotic fracture based on the [place] adapted WHO algorithm. 4. Other Recommendations: All treatment decisions require clinical judgment and consideration of individual patient factors, including patient preferences, comorbidities, previous drug use, risk factors not captured in the FRAX model (e.g. frailty, falls, vitamin D deficiency, increased bone turnover, interval significant decline in bone density) and possible under or overestimation of fracture risk by FRAX. FUTURE SCAN RECOMMENDATION: People with diagnosed cases of osteoporosis or at high risk for fracture should have regular bone mineral density tests. For patients eligible for Medicare, routine testing is allowed once every 2 years. The testing frequency can be increased to one year for patients who have rapidly progressing disease, those who are receiving or discontinuing medical therapy to restore bone mass, or have additional risk factors. Electronically signed by: Erika Thompson MD 05/22/2024 10:00 AM [facility]
== END 2024-05-22 08:06 | disposition home or self-care (01) ==
LOC: HO.MAMMO 08:05
PROVIDERS: PCP Physician Assistant; Visit Provider Internal Medicine
DX: K90.0 Celiac disease (principal)
CPT/HCPCS: 77080

== ENCOUNTER 2024-08-05 07:34 | Outpatient (REF) | payer BC, SELFPAY ==
[2024-08-05 07:47] LABS: MANUAL DIFF FLAG NO
[2024-08-05 08:04] LABS: Basophils Percent Auto 0.8 % (0-2); Eosinophils Absolute Auto 0.1 X10*3/uL (0.0-0.4); Eosinophils Percent Auto 2.4 % (0-4); Hemoglobin 16.2 g/dl (14.0-18.0); Imm Gran Abs Auto 0.01 X10*3/uL (0.00-0.03); Imm Gran Pct Auto 0.3 % (0.0-0.4); Lymphocytes Absolute Auto 1.1 X10*3/uL (1.2-4.9); Mean Corpuscular HGB Conc 34.5 g/dl (31.0-36.0); Mean Corpuscular Hemoglobin 31.8 pg (27.0-33.0); Mean Corpuscular Volume 92.3 fL (80.0-98.0); Mean Platelet Volume 9.9 fL (9.4-12.4); Monocytes Absolute Auto 0.3 X10*3/uL (0.1-1.2); Monocytes Percent Auto 8.4 % (2-11); Neutrophils Absolute Auto 2.2 x10*3/uL (2.0-8.3); Neutrophils Percent Auto 58.1 % (45-73); Platelet Count 155 X10*3/uL (160-400); Red Blood Count 5.09 X10*6/uL (4.60-5.80); Red Cell Distribution Width 13.4 % (11.0-16.0); White Blood Count 3.8 X10*3/uL (4.8-10.8)
[2024-08-05 08:09] LABS: Prothrombin Time 11.6 SEC (10.9-12.4)
[2024-08-05 08:36] LABS: Alanine Aminotransferase 44 U/L (0-40); Albumin Level 4.6 g/dL (3.5-5.0); Alkaline Phosphatase 46 U/L (39-117); Anion Gap 11 (12-20); Aspartate Amino Transferase 30 U/L (5-37); Bilirubin Direct 0.4 mg/dL (0.0-0.5); Bilirubin Total 1.4 mg/dL (0.0-1.0); Blood Urea Nitrogen 12 mg/dL (9-16); Carbon Dioxide 30 mmol/L (22-29); Chloride 105 mmol/L (96-108); Estimated Glomerular Filt Rate > 60; Glucose Random 100 mg/dL (60-115); Iron 105 mcg/dL (45-160); Percent Iron Saturation 36 % (15-50); Potassium 4.3 mmol/L (3.3-5.1); Sodium 142 mmol/L (135-145); Total Iron Binding Capacity 295 mcg/dL (228-428); Total Protein 8.1 g/dL (6.5-8.0); Unsaturated Iron Binding 190 ug/dL
[2024-08-05 08:57] LABS: Ferritin 147 ng/mL (20-250)
== END 2024-08-05 07:35 | disposition home or self-care (01) ==
LOC: HO.LAB 07:34
PROVIDERS: PCP Physician Assistant; Visit Provider Internal Medicine
DX: E83.19 Other disorders of iron metabolism (principal); R17 Unspecified jaundice
CPT/HCPCS: 36415; 80053; 80076; 82248; 82728; 83540; 85025; 85027; 85610

== ENCOUNTER 2024-08-07 16:03 | Outpatient (AMB) | payer BC, SELFPAY ==
--- NOTE | 2024-08-07 16:04 | A.OFFVIS_ITS ---
Vital Signs 08/07/24 16:06 Height 6 ft 8 in Weight 273 lb 5.971 oz BMI 30.0 BP 133/93 H Blood Pressure Location Lt brachial Position Sitting Pulse 75 Intake Visit Reasons: Cirrhosis of liver r/s from 06/17 Intake Note: Satinder presents in the office as a follow up for cirrhosis. CC: States that he has stopped drinking - 8 months ago!! He states that he is not having any symptoms just a follow up. Allergies gluten Allergy (Unknown, Verified 08/07/24 16:06) Unknown HPI Comments Details: 38 y.o M with PMH of etOH use disorder in early remission, hx of guillian barre syndrome 2021, celiac dx, hx of gallstones s/p ERCP and CCY 2022, who is here for further evaluation of liver disease. Reports drinking daily almost 48 oz o chardonnay x years. Quit date December 11 2023. Had elastography in Mar at 3 month sobriety ewa but results pending. Thrombocytopenia on labs noted, LFTs normal except bili (indirect>direct). Had EUS/ERCP in 2022 without any varices at that time. Around 4-5 years ago was first diagnosed with etOH assoc with liver disease. Fam hx also + for hemochromatosis on maternal side. Pt reports seeing Dr Sotomayor many years ago for phlebotomy. Most recent iron studies with high ferritin but normal iron sat. 08/07/24: Here for follow up. Reports has trouble following GFD as has long commute and not able to to do grocery shopping. Lives in a sober house. In terms of etOH use - will be 8 months sober on August 10. Reviewed elastography results which are indicative of advanced fibrosis vs early cirrhosis. However Fib 4 from labs yesterday is 1.17. Iron studies reviewed. Does not have evidence of HH at this time. [facility] Medical History GBS (Guillain [place] syndrome) Vitamin deficiency Steatosis, liver Snoring RLS (restless legs syndrome) Rib pain on right side PLMD (periodic limb movement disorder) Pleuritic pain Macrocytosis Insomnia Hyperlipidemia GERD (gastroesophageal reflux disease) JULIANNA (generalized anxiety disorder) Folic acid deficiency Elevated LFTs Elevated BP without diagnosis of hypertension Dyspnea Common bile duct stone Cirrhosis Celiac disease Axonal polyneuropathy ALT (SGPT) level raised Alcoholic hepatitis ADD (attention deficit disorder) Surgical History History of esophagogastroduodenoscopy (EGD) S/P laparoscopic cholecystectomy Social History Housing: House Patient Tobacco Use Status: Never used Tobacco e-Cigarette/Vaping Use: Currently Using Second Hand Smoke Exposure: No service: No Current occupational status: employed 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 Current occupational exposures/hazards: No Cognitive needs: No Hearing needs: No Vision needs: No Review of Systems Const All systems reviewed & are unremarkable except as noted in HPI and below Physical Exam Vital Signs: Last Vital Signs Pulse 75 08/07/24 16:06 BP 133/93 H 08/07/24 16:06 BMI result Body Mass Index 30.0 No apparent distress Nonicteric Abdomen soft, nondistended Alert and oriented x3, normal gait Assessment & Plan Assessment & Plan (1) Chronic liver disease: Code(s): K76.9 - Liver disease, unspecified Category: Medical (2) Celiac disease: Code(s): K90.0 - Celiac disease Category: Medical (3) Alcohol use disorder in remission: Code(s): F10.91 - Alcohol use, unspecified, in remission Category: Medical Plan At this time, elastography remains indicative of advanced fibrosis vs early cirrhosis whereas Fib 4 has improved. To keep in mind, elasto was done 4 months post sobriety so will favor cehcking another scan. High ferritin likely from etOH use and liver disease. No evidence of HH at this time. Will hold off liver bx at this time. Highcholesterol on labs - not on statin. Discussed that would reocmmend at least a mod intensity statin. Plan: - Cont abstinence from etOH - Start atorva 20 - Lifestyle modifications to prevent non-etOH fatty liver disease progression discussed - CBC, CMP, INR in 3 months - Elastography re-ordered to be done in September (6m from prior) - EGD to be set up In terms of celiac disease, dx in his 20s. Is not completely GF. Serology + also from dietary indiscretion. Plan: - GFD again emphasized. Can utilize grocery deliver services. - EGD as above -will get small bowel bx Follow up 3 months Orders: Orders Prothrombin Time INR 3 Months K76.9 - Liver disease, unspecified Comprehensive Met. Panel 3 Months K76.9 - Liver disease, unspecified US abdomen comp w elastography 2 Months K74.60 - Unspecified cirrhosis of liver Complete Blood Count no Diff 3 Months K76.9 - Liver disease, unspecified Medications: New atorvastatin 20 mg PO BEDTIME 90 days 90 tabs 1RF Refilled omeprazole 20 mg PO BID 180 caps 3RF Coding Level of Care Code Est Pt Level 4 (37882) Diagnoses Chronic liver disease K76.9 Celiac disease K90.0 Alcohol use disorder in remission F10.91
[2024-08-07 16:06] VITALS: BP 133/93; PULSE 75
== END 2024-08-07 16:40 | disposition home or self-care (01) ==
PROVIDERS: PCP Physician Assistant; Referring Provider Physician Assistant; Visit Provider Internal Medicine
DX: K76.9 Liver disease, unspecified (principal); K90.0 Celiac disease; F10.91 Alcohol use, unspecified, in remission
CPT/HCPCS: 99214

== ENCOUNTER → 2024-08-07 16:03 | Outpatient (BNVA) | payer BC, SELFPAY | PROVIDERS: PCP Physician Assistant; Visit Provider Internal Medicine ==

== ENCOUNTER 2024-10-07 07:49 | Outpatient (REF) | payer BC, SELFPAY ==
--- NOTE | ~2024-10-07 | US_ITS ---
EXAMINATION: US ABDOMEN COMPLETE WITH LIVER ELASTOGRAPHY HISTORY: K74.60 - Unspecified cirrhosis of liver TECHNIQUE: Real-time grayscale ultrasound imaging of the abdomen was performed and images were reviewed. COMPARISON: Comparison is made with the prior examination dated 04/11/2024. FINDINGS: Liver: The right lobe of the liver measures 18.3 cm in size. The left lobe of the liver measures 11.6 cm in size. The liver demonstrates normal homogeneous echotexture, but demonstrates a nodular contour, suggestive of cirrhosis. No focal mass or intrahepatic biliary ductal dilatation is identified. There is normal hepatopedal flow in the portal vein. Ultrasound elastography of the liver was performed with 10 separate measurements of the liver parenchyma with the patient in the supine position. Measurements were obtained approximately 2 cm below Jodi's capsule and perpendicular to the capsule. Images are of satisfactory quality. The median shear wave velocity is 0.88 m/s (previously 1.72 m/s although this was on a comparison from a different vendor not directly comparable). The interquartile range/median (IQR/median) is 0.23. Gallbladder and biliary tree: The gallbladder is surgically absent. The common bile duct is normal in caliber measuring 2 mm. Kidneys: The right kidney measures 12.4 cm in length. The left kidney measures 14.0 cm in length. The kidneys are unremarkable, without evidence of masses, hydronephrosis, or calculi. Pancreas: The pancreatic head, neck, and body are unremarkable. The pancreatic tail is obscured by bowel gas. Spleen: The spleen is enlarged, measuring 17.0 cm in length. Abdominal aorta and inferior vena cava: The visualized portions of the abdominal aorta and inferior vena cava are normal in caliber. There is no free fluid in the abdomen. US/US abdomen comp w elastography IMPRESSION: Cirrhosis of the liver. Splenomegaly. The median shear wave velocity in the liver is 0.88 m/s, corresponding to a median liver stiffness of 2.3 kPa. The IQR/median value is 0.23. This is indicative of a quality data set. Findings are indicative of a normal elastography value with a low likelihood of severe fibrosis or cirrhosis. REFERENCE: Society of Radiologists in Ultrasound Liver Stiffness Thresholds (2020): LIVER STIFFNESS THRESHOLDS: *Shear wave velocity less than 1.3 m/s (Liver Stiffness equal or less than 5 kPa): High probability of being normal. *Shear wave velocity less than 1.7 m/s (Liver Stiffness less than 9 kPa): In the absence of other known clinical signs, rules out compensated advanced chronic liver disease. *Shear wave velocity between 1.7-2.1 m/s (Liver Stiffness 9-13 kPa): Suggestive of compensated advanced chronic liver disease but need further test for confirmation. *Shear wave velocity between 2.1-2.4 m/s (Liver Stiffness 13-17 kPa): Rules in compensated advanced chronic liver disease. *Shear wave velocity greater than 2.4 m/s (Liver Stiffness over 17 kPa): Suggestive of clinically significant portal hypertension. QUALITY OF DATA SET: *IQR/Median value equal or less than 0.15 implies a quality data set. *IQR/Median value over 0.15 implies a poor quality data set. SIGNIFICANT CHANGE FROM PRIOR EXAM: Significant change if liver stiffness measurement is 10% or greater from prior exam. OTHER CONSIDERATIONS: The stage of liver fibrosis may be overestimated in the setting of acute hepatitis, liver inflammation, elevated liver function tests, hepatic vascular congestion, obstructive cholestasis, non-fasting state, and infiltrative diseases such as amyloidosis and lymphoma. In some patients with NAFLD, the liver stiffness thresholds for compensated advanced chronic liver disease may be lower. In causes other than viral hepatitis and NAFLD, liver stiffness thresholds are not well established. Electronically signed by: Quirino Starr MD 10/09/2024 10:02 AM EDT
== END 2024-10-07 07:50 | disposition home or self-care (01) ==
LOC: HO.US 07:49
PROVIDERS: PCP Physician Assistant; Visit Provider Internal Medicine
DX: K74.60 Unspecified cirrhosis of liver (principal)
CPT/HCPCS: 76700; 76981

== ENCOUNTER → 2024-10-07 07:51 | Outpatient (BNV) | payer BC, SELFPAY | PROVIDERS: PCP Physician Assistant; Visit Provider Radiology Diagnostic Radiology | DX: K74.60 Unspecified cirrhosis of liver (principal) | CPT/HCPCS: 76700; 76981 ==

== ENCOUNTER 2024-11-05 14:54 | Outpatient (REF) | payer BC, SELFPAY ==
[2024-11-05 15:37] LABS: Hematocrit 43.8 % (42.0-52.0); Mean Corpuscular HGB Conc 36.5 g/dl (31.0-36.0); Mean Corpuscular Hemoglobin 32.5 pg (27.0-33.0); Mean Corpuscular Volume 88.8 fL (80.0-98.0); Mean Platelet Volume 10.5 fL (9.4-12.4); Platelet Count 165 X10*3/uL (160-400); Red Blood Count 4.93 X10*6/uL (4.60-5.80); Red Cell Distribution Width 12.4 % (11.0-16.0); White Blood Count 7.9 X10*3/uL (4.8-10.8)
[2024-11-05 15:53] LABS: INTERNATIONAL NORM RATIO 1.1 (0.9-1.1); Prothrombin Time 13.1 SEC (10.9-12.4)
[2024-11-05 16:29] LABS: Alanine Aminotransferase 32 U/L (0-40); Albumin Level 4.9 g/dL (3.5-5.0); Alkaline Phosphatase 52 U/L (39-117); Anion Gap 12 (12-20); Aspartate Amino Transferase 30 U/L (5-37); Bilirubin Total 3.9 mg/dL (0.0-1.0); Blood Urea Nitrogen 11 mg/dL (9-16); Calcium 9.5 mg/dL (8.4-10.2); Carbon Dioxide 25 mmol/L (22-29); Chloride 105 mmol/L (96-108); Estimated Glomerular Filt Rate > 60; Glucose Random 102 mg/dL (60-115); Potassium 3.9 mmol/L (3.3-5.1); Sodium 138 mmol/L (135-145); Total Protein 7.7 g/dL (6.5-8.0)
== END 2024-11-05 14:55 | disposition home or self-care (01) ==
LOC: HO.LAB 14:54
PROVIDERS: PCP Physician Assistant; Visit Provider Internal Medicine
DX: K76.9 Liver disease, unspecified (principal)
CPT/HCPCS: 36415; 80053; 85027; 85610

== ENCOUNTER → 2024-11-06 15:55 | Outpatient (AMB) | payer BC, SELFPAY ==
--- NOTE | 2024-11-06 15:57 | MHC.OFFVIS ---
Vital Signs 11/06/24 15:59 Height 6 ft 8 in Weight 266 lb 12.149 oz BMI 29.3 BP 133/95 H Blood Pressure Location Lt brachial Position Sitting Pulse 72 Intake Visit Reasons: 3 mo f/u Intake Note: Satinder presents in the office as a 3 month follow up. CC: States that his concerns are with his blood work - bilirubin has doubled. He has been taking a potent liver detoxifyer and he is wondering if that is what elevating the labs. He has changed his life and lifestyle and wants to be healthy. Is concerne dthat Jaundice and cirrhosis were mentioned. 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 Reports drinking daily almost 48 oz o chardonnay x years. Quit date December 11 2023. Had elastography in Mar at 3 month sobriety ewa but results pending. Thrombocytopenia on labs noted, LFTs normal except bili (indirect>direct). Had EUS/ERCP in 2022 without any varices at that time. Around 4-5 years ago was first diagnosed with etOH assoc with liver disease. Fam hx also + for hemochromatosis on maternal side. Pt reports seeing Dr Sotomayor many years ago for phlebotomy. Most recent iron studies with high ferritin but normal iron sat. 08/07/24: Here for follow up. Reports has trouble following [employer] as has long commute and not able to to do grocery shopping. Lives in a sober house. In terms of etOH use - will be 8 months sober on August 10. Reviewed elastography results which are indicative of advanced fibrosis vs early cirrhosis. However Fib 4 from labs yesterday is 1.17. Iron studies reviewed. Does not have evidence of HH at this time. 11/06/24: Here for routine follow up. Almost a year sober from etOH. Quit date 12/11/23. Labs reviewed. Bili up. Thinks could be from the liver detox supplement he was taking. No abd pain, N, V. Elastography reviewed. Pt understandably frustrated with little progress. However, reviewe dthat overall labs look better. Thrombocytopenia has resolved! transaminases better. PFSH Medical History GBS (Guillain [place] syndrome) Vitamin deficiency Steatosis, liver Snoring RLS (restless legs syndrome) Rib pain on right side PLMD (periodic limb movement disorder) Pleuritic pain Macrocytosis Insomnia Hyperlipidemia GERD (gastroesophageal reflux disease) JULIANNA (generalized anxiety disorder) Folic acid deficiency Elevated LFTs Elevated BP without diagnosis of hypertension Dyspnea Common bile duct stone Cirrhosis Celiac disease Axonal polyneuropathy ALT (SGPT) level raised Alcoholic hepatitis ADD (attention deficit disorder) Surgical History History of esophagogastroduodenoscopy (EGD) S/P laparoscopic cholecystectomy Social History Housing: House Patient Tobacco Use Status: Never used Tobacco e-Cigarette/Vaping Use: Currently Using Second Hand Smoke Exposure: No service: No Current occupational status: employed 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 Current occupational exposures/hazards: No Cognitive needs: No Hearing needs: No Vision needs: No Review of Systems Const All systems reviewed & are unremarkable except as noted in HPI and below Physical Exam Vital Signs: Last Vital Signs Pulse 72 11/06/24 15:59 BP 133/95 H 11/06/24 15:59 BMI result Body Mass Index 29.3 No apparent distress Nonicteric Abdomen soft, nondistended Alert and oriented x3, normal gait Assessment & Plan Assessment & Plan (1) Chronic liver disease: Code(s): K76.9 - Liver disease, unspecified Category: Medical (2) Alcohol use disorder in remission: Code(s): F10.91 - Alcohol use, unspecified, in remission Category: Medical Plan At this time, elastography remains indicative of advanced fibrosis vs early cirrhosis whereas Fib 4 has improved. In terms of HH, homozygous for H63D but iron studies normal. Will hold off liver bx at this time. Plan: - Cont abstinence from etOH - Cont atorva 20 - Lifestyle modifications to prevent non-etOH fatty liver disease progression discussed - liver profile in 3 months - Will also check lipids - US Abd due 03/2025 - EGD to be set up Follow up after egd Orders: Orders Liver Panel 3 Months K76.9 - Liver disease, unspecified Bilirubin Direct 3 Months K76.9 - Liver disease, unspecified Lipid Panel 3 Months K76.9 - Liver disease, unspecified Coding Level of Care Code Est Pt Level 4 (10845) Diagnoses Chronic liver disease K76.9 Alcohol use disorder in remission F10.91
[2024-11-06 15:59] VITALS: BP 133/95; PULSE 72; BMI 29.3
== END ==
LOC: HO.HGI 15:56
PROVIDERS: PCP Physician Assistant; Visit Provider Internal Medicine
DX: K76.9 Liver disease, unspecified (principal); F10.91 Alcohol use, unspecified, in remission
CPT/HCPCS: 99214

== ENCOUNTER 2024-12-20 10:16 | Outpatient (REF) | payer BC, SELFPAY ==
[2024-12-20 11:22] LABS: Alanine Aminotransferase 29 U/L (0-40); Albumin Level 4.9 g/dL (3.5-5.0); Alkaline Phosphatase 44 U/L (39-117); Aspartate Amino Transferase 25 U/L (5-37); Cholesterol 163 mg/dL (<200); HDL Cholesterol 35 mg/dL (>40); Total Protein 7.7 g/dL (6.5-8.0); Triglycerides 115 mg/dL (<150)
== END 2024-12-20 10:17 | disposition home or self-care (01) ==
LOC: HO.LAB 10:16
PROVIDERS: PCP Physician Assistant; Visit Provider Internal Medicine
DX: K76.9 Liver disease, unspecified (principal)
CPT/HCPCS: 36415; 80061; 80076; 82248

== ENCOUNTER 2025-01-09 10:37 | Outpatient (AMB) | payer BC, SELFPAY ==
--- NOTE | 2025-01-09 10:43 | A.OFFPC_ITS ---
Vital Signs 01/09/25 10:48 Height 6 ft 8 in Weight 258 lb 2 oz BMI 28.4 BP 122/82 Blood Pressure Location Lt brachial Position Sitting Respiration 16 Pulse 75 Pulse Source Pulse Oximeter Pulse Oximetry (%) 98 Oxygen Delivery Method Room Air Intake Visit Reasons: kicking/snoring when asleep Intake Note: Snoring Allergies gluten Allergy (Unknown, Verified 01/09/25 10:44) Unknown Medication List - Last Reconciled 01/09/25 by Maral Gould PA-C albuterol sulfate 90 mcg/actuation 2 puffs inhalation Q4-6H PRN cholecalciferol (vitamin D3) PO diphenhydramine HCl (Unisom SleepGels) 50 mg PO BEDTIME magnesium oxide 400 mg PO DAILY melatonin 10 mg PO BEDTIME PRN omeprazole 20 mg PO BID thiamine HCl (vitamin B1) 100 mg PO BID Tobacco use date assessed: 02/14/24 Dental Screening Dental Screen Date: 02/14/24 HPI kicking/snoring when asleep HPI Details Patient is a 39-year-old male who presents today for a follow up. 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 Psych: Has been referred to behavioral health for his anxiety and insomnia. He states that medications that have been tried have not been effective. He wonders if his insomnia is related to sleep apnea or movement issues. He does not like having a CPAP machine. He has followed in the past and was told that he did have sleep apnea but this was about 4 5 years ago. GI: History of cirrhosis and states that he is struggling to fully understand the cirrhosis. He does not like having cirrhosis and wants this removed from his chart. He is following with GI. At times he is developing yellowing of the eyes but it does typically resolve.. CV: He does not like that he was put on statins as he thinks the statins may contribute to further liver damage. He stopped the atorvastatin and states that he has been off of it for about a month now and when he just that his lipids it was without being on the medication. He has been working very hard on a low-fat diet and overall healthy diet Heme: Last iron was normal and ferritin was elevated. It was felt in the past by [facility] that he did not have hemochromatosis and there was no need for treatment. [facility] Medical History (Updated 01/10/25 @ 10:25 by Maral Gould PA-C) GBS (Guillain [place] syndrome) Vitamin deficiency Steatosis, liver Snoring RLS (restless legs syndrome) Rib pain on right side PLMD (periodic limb movement disorder) Pleuritic pain Macrocytosis Insomnia Hyperlipidemia GERD (gastroesophageal reflux disease) JULIANNA (generalized anxiety disorder) Folic acid deficiency Elevated LFTs Elevated BP without diagnosis of hypertension Dyspnea Common bile duct stone Cirrhosis Celiac disease Axonal polyneuropathy ALT (SGPT) level raised Alcoholic hepatitis ADD (attention deficit disorder) Surgical History History of esophagogastroduodenoscopy (EGD) S/P laparoscopic cholecystectomy Social History (Updated 01/09/25 @ 11:32 by Yany Hubbard CMA) Housing: House Alcohol intake: former Comment: quit 13 months ago Patient Tobacco Use Status: Never used Tobacco e-Cigarette/Vaping Use: Currently Using Second Hand Smoke Exposure: No service: No Current occupational status: employed 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 1. Little interest or pleasure in doing things: not at all 2. Feeling down, depressed, or hopeless: not at all 3. Trouble falling or staying asleep, or sleeping too much: several days 4. Feeling tired or having little energy: not at all 5. Poor appetite or overeating: not at all 6. Feeling bad about yourself - or that you are a failure or have let yourself or your family down: not at all 7. Trouble concentrating on things, such as reading the newspaper or watching television: more than half the days 8. Moving or speaking so slowly that other people could have noticed. Or the opposite - being so fidgety or restless that you have been moving around a lot more than usual: not at all 9. Thoughts that you would be better off or of hurting yourself in some way: not at all Total score: 3 Depression Screening Interpretation: Negative Depression Screening Done: Yes 13861 - PHQ-9 Billing: Yes Source: Developed by Drs. Quirino Schwab, Magy B.W. Rainer Patel and colleagues, with an educational ana from [employer]. Thrive Questionnaire Date Thrive assessed: 03/21/24 I am a: Patient What is your living situation today?: I have a steady place to live Within the past 12 months, did the food you bought not last and you didn't have the money to get more?: Never true Within the past 12 months, did you worry whether your food would run out before you got money to buy more?: Never true Do you have trouble paying for medicines?: No Do you have trouble getting transportation to medical appointments?: No Do you have trouble paying your heating and electricity bill?: No Do you have trouble taking care of your child, family member or friend?: No Do you have trouble with day-to-day activities such as bathing, preparing meals, shopping, managing finances, etc.?: No Are you currently unemployed and looking for a job?: No Are you interested in more education?: Yes Please select the resources that you would like help with: None Currently or been in a relationship where the following occur: No concerns reported THRIVE Score: 0 AUDIT C Alcohol Use Questionnaire (AUDIT-C) 1. How often do you have a drink containing alcohol?: Never Total Score: 0 JULIANNA-7 AMB Questionnaire JULIANNA-7 Feeling nervous, anxious, or on edge: 0 = Not at all Not being able to stop or control worryin = Not at all Worrying too much about different things: 0 = Not at all Trouble relaxin = Not at all Being so restless that it is hard to sit still: 0 = Not at all Becoming easily annoyed or irritable: 0 = Not at all Feeling afraid as if something awful might happen: 0 = Not at all Total JULIANNA-7 score (0-4 normal; 5-9 mild; 10-14 moderate; 15-21 severe): 0 Source: Developed by Drs. Quirino Schwab, Rainer Neal and colleagues, with an educational ana from [employer]. JULIANNA-7 Assessment Billing JULIANNA-7 Assessment Tool: JULIANNA-7 Assessment 03189 Physical exam (Primary Care) Vital Signs: Last Vital Signs Pulse 75 01/09/25 10:48 Resp 16 01/09/25 10:48 BP 122/82 01/09/25 10:48 Pulse Ox 98 01/09/25 10:48 Oxygen Delivery Method Room Air 01/09/25 10:48 BMI result Body Mass Index 28.4 Tobacco/Smoking Status: Tobacco use Status Tobacco use date assessed 02/14/24 01/09/25 10:43 Patient Tobacco Use Status Never used Tobacco 01/09/25 10:43 e-Cigarette/Vaping Use Currently Using 01/09/25 10:43 PHQ-9: PHQ-9 Score PHQ-9: Total score 3 01/09/25 10:51 Depression Screening Interpretation: Negative Thrive Assessment: Date of Thrive Assessment Date Thrive assessed 03/21/24 01/09/25 10:43 Currently or been in a relationship where the following occur: No concerns reported Const Orientation/consciousness: patient oriented x3 HENMT Ears: hearing grossly normal bilaterally Neck Thyroid: Thyroid normal Lymphatic: no lymphadenopathy noted Resp Auscultation: clear to auscultation bilaterally Cardio Rate: regular rate Rhythm: regular rhythm Heart sounds: S1 normal heart sound present and S2 normal heart sound present GI Inspection: Yes normal to inspection Palpation (GI): Soft to palpation and Other GI palpation findings present (nontender, no cva tenderness) Auscultation: normoactive bowel sounds Rectal Exam - Male: Yes deferred Skin General skin exam: no rashes or lesions noted Neuro General: patient oriented x3, gait normal and no focal motor deficits Results Reviewed Results Reviewed: Laboratory Tests 11/05/24 12/20/24 15:06 10:28 WBC 7.9 RBC 4.93 Hgb 16.0 Hct 43.8 Plt Count 165 Creatinine 0.87 Estimated GFR > 60 Random Glucose 102 Total Bilirubin 2.4 H Direct Bilirubin 0.5 AST 25 ALT 29 Alkaline Phosphatase 44 Total Protein 7.7 Albumin 4.9 Triglycerides 115 Cholesterol 163 LDL Cholesterol, Calc 105 H HDL Cholesterol 35 L US/US abdomen comp w elastography IMPRESSION: Cirrhosis of the liver. Splenomegaly. Coding Level of Care Code Est Pt Level 4 (72481) Complex EM visit Add On G2211 Diagnoses Cirrhosis K74.60 Hepatic cirrhosis type: alcoholic cirrhosis Iron excess E83.19 Family history of heart disease Z82.49 Insomnia G47.00 Snoring R06.83 Hyperlipidemia E78.5 Additional Codes PHQ-9 - 01831 - PHQ-9 Billing: Yes ([id number]) JULIANNA-7 Assessment Billing - JULIANNA-7 Assessment Tool: JULIANNA-7 Assessment 70211 ([id number]) Assessment & Plan Assessment & Plan (1) Cirrhosis: Code(s): K74.60 - Unspecified cirrhosis of liver Category: Medical Qualifiers: Hepatic cirrhosis type: alcoholic cirrhosis Plan: We spent extensive time discussing cirrhosis today and I did discuss with him that this is permanent scarring of the liver. I have congratulated him on the sobriety. Advised him to follow with GI as discussed (2) Iron excess: Code(s): E83.19 - Other disorders of iron metabolism Category: Medical Plan: We will check labs today (3) Family history of heart disease: Code(s): Z82.49 - Family history of ischemic heart disease and other diseases of the circulatory system Category: Medical Plan: He does have a family history of heart disease in his father and did just have an abnormal CT calcium scan of the his heart. Requests this today. Understands that insurance may not cover this. No chest pain or shortness on breath. Ordered today. (4) Insomnia: Code(s): G47.00 - Insomnia, unspecified Category: Medical Plan: Referral to sleep Medicine. Sleep study ordered. (5) Snoring: Code(s): R06.83 - Snoring Category: Medical Plan: As above. (6) Hyperlipidemia: Code(s): E78.5 - Hyperlipidemia, unspecified Category: Medical Plan: We will check lipids with him being off of atorvastatin in a few months. Orders: Orders Complete Blood Count Auto Diff 01/09/25 E83.19 - Other disorders of iron metabolism, K74.60 - Unspecified cirrhosis of liver Lipid Panel 01/09/25 E83.19 - Other disorders of iron metabolism, K74.60 - Unspecified cirrhosis of liver CT Coronary Calcium Score 01/09/25 Z82.49 - Family history of ischemic heart disease and other diseases of the circulatory system RT home sleep study 01/09/25 R06.81 - Apnea, not elsewhere classified Ferritin 01/09/25 E83.19 - Other disorders of iron metabolism, K74.60 - Unspecified cirrhosis of liver Basic Metabolic Panel 01/09/25 E83.19 - Other disorders of iron metabolism, K74.60 - Unspecified cirrhosis of liver Liver Panel 01/09/25 E83.19 - Other disorders of iron metabolism, K74.60 - Unspecified cirrhosis of liver Referrals 2 Sleep Medicine Referral G47.00 - Insomnia, unspecified, R06.83 - Snoring
[2025-01-09 10:48] VITALS: BP 122/82; PULSE 75; RESP 16; O2SAT 98; BMI 28.4
== END 2025-01-09 11:31 | disposition home or self-care (01) ==
LOC: HO.HMCFM 10:38
PROVIDERS: PCP Physician Assistant; Visit Provider Physician Assistant
DX: K74.60 Unspecified cirrhosis of liver (principal); E83.19 Other disorders of iron metabolism; Z82.49 Family history of ischemic heart disease and other diseases of the circulatory system; G47.00 Insomnia, unspecified; R06.83 Snoring; E78.5 Hyperlipidemia, unspecified

== ENCOUNTER → 2025-01-09 10:37 | Outpatient (BNVA) | payer BC, SELFPAY | PROVIDERS: PCP Physician Assistant; Visit Provider Physician Assistant | DX: R06.83 Snoring (principal); E83.19 Other disorders of iron metabolism; K74.60 Unspecified cirrhosis of liver; G47.00 Insomnia, unspecified; E78.5 Hyperlipidemia, unspecified; Z82.49 Family history of ischemic heart disease and other diseases of the circulatory system | CPT/HCPCS: 96127 ==

== ENCOUNTER 2025-01-30 08:14 | Outpatient (AMB) | payer BC, SELFPAY ==
--- NOTE | 2025-01-30 08:19 | A.OFFVIS_ITS ---
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 He states that medications that have been tried have not been effective. He wonders if his insomnia is related to sleep apnea or movement issues. He does not like having a CPAP machine. He has followed in the past and was told that he did have sleep apnea but this was about 4-5 years ago. Patient had sleep study done about 2-3 years ago through [facility]. Accompanied by: Self / Same As Patient Allergies gluten Allergy (Unknown, Verified 01/30/25 08:24) Unknown HPI Comments Details: 39 year old male with h/o GBS post covid presents for sleep apnea evaluation. [facility] Feb 2022 to Jun 2022 hospitalized for GBS, post 2nd covid vaccination (moderna). he was started on IVIG and then discharged 3 months later. He lost 35lbs. 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 He started drinking alcohol and sleep aides to help him sleep during the day. He snores loudly per his g/f and she refuses to sleep in the same room as him. He has RLS, kicking, flailing and thrashing behavior at night. His entire body jerks and he wakes himself up due to an uncomfortable sensation in his calves bilaterally. He wake up and stretches his legs, and kneads the soles of his feet, calves and legs as they are always stiff and tight. He denies pins, needles, burning or tingling in his feet. His works is high stress and can be emotionally overwhelmed, though his mood is usually stable. He denies morning headaches. He has tried, taking 4- 10mg melatonin gummies, with z-quil, L thianine, Unisom 40mg po at bedtime and continues to have fragmented sleep. He denies smoking and using alcohol for over 6 months now, he is being followed by GI for Endoscopy. [facility] Medical History GBS (Guillain [place] syndrome) Vitamin deficiency Steatosis, liver Snoring RLS (restless legs syndrome) Rib pain on right side PLMD (periodic limb movement disorder) Pleuritic pain Macrocytosis Insomnia Hyperlipidemia GERD (gastroesophageal reflux disease) JULIANNA (generalized anxiety disorder) Folic acid deficiency Elevated LFTs Elevated BP without diagnosis of hypertension Dyspnea Common bile duct stone Cirrhosis Celiac disease Axonal polyneuropathy ALT (SGPT) level raised Alcoholic hepatitis ADD (attention deficit disorder) Surgical History History of esophagogastroduodenoscopy (EGD) S/P laparoscopic cholecystectomy Social History Housing: House Alcohol intake: former Comment: quit 13 months ago Patient Tobacco Use Status: Never used Tobacco e-Cigarette/Vaping Use: Currently Using Second Hand Smoke Exposure: No service: No Current occupational status: employed 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 Current occupational exposures/hazards: No Cognitive needs: No Hearing needs: No Vision needs: No Physical Exam Vital Signs: Last Vital Signs Pulse 63 01/30/25 08:21 BP 122/88 01/30/25 08:21 Pulse Ox 99 01/30/25 08:21 Oxygen Delivery Method Room Air 01/30/25 08:21 BMI result Body Mass Index 27.7 Const General: cooperative and no acute distress Nutritional Appearance: average body habitus Orientation/consciousness: patient oriented x3 HEENT Face and sinus: Yes face symmetric Teeth and gingiva: other (mallampti score is 3) Eyes Pupils: Equal, round and reactive pupils present Neck Neck: Yes full ROM Resp Effort & Inspection: normal respiratory effort and able to speak in complete sentences Neuro General: patient oriented x3 and moves all extremities Cranial nerves: Yes Equal, round and reactive pupils present, Yes Normal accommodation reflex present, Yes Nystagmus not present, Yes Normal facial strength present, Yes Midline tongue present, Yes Symmetric palate elevation present, Yes Ability to bilaterally rotate head present and Yes Ability to bilaterally elevate shoulders present Cognition (Neuro): normal cognition Gait exam (Neuro): Normal gait present Motor exam (neuro): 5/5 motor strength present throughout and Normal motor muscle tone present throughout Deep tendon reflexes (DTR's): Right triceps reflex intensity grade: 2+, Left triceps reflex intensity grade: 2+, Rt Biceps (C5, C6): 2+, Left biceps reflex intensity grade: 2+, Right brachioradialis reflex intensity grade: 2+, Left brachioradialis reflex intensity grade: 2+, Right patellar reflex intensity grade: 2+ and Left patellar reflex intensity grade: 2+ Coordination: [id number] test normal Psych Appearance: grossly normal Thought process: Normal thought process present Thought content: Normal thought content present Results Reviewed Results Reviewed: Cirrhosis of the liver. Splenomegaly. Cholecystectomy, absent gall bladder. Labs reviewed with patient. The median shear wave velocity in the liver is 0.88 m/s, corresponding to a median liver stiffness of 2.3 kPa. The IQR/median value is 0.23. This is indicative of a quality data set. Findings are indicative of a normal elastography value with a low likelihood of severe fibrosis or cirrhosis. Assessment & Plan Assessment & Plan (1) Excessive daytime sleepiness: Code(s): G47.19 - Other hypersomnia Category: Medical (2) Fatigue: Code(s): R53.83 - Other fatigue Category: Medical Qualifiers: Fatigue type: chronic, unspecified Qualified Code(s): R53.82 - Chronic fatigue, unspecified (3) Numbness and tingling of both feet: Code(s): R20.0 - Anesthesia of skin; R20.2 - Paresthesia of skin Category: Medical (4) Numbness and tingling of both legs: Code(s): R20.0 - Anesthesia of skin; R20.2 - Paresthesia of skin Category: Medical Plan PSG to r/o OMID R/O RLS / PLMD? numbness tingling of bilateral lower extremities with stiffness and Axonal polyneuropathy H/O GBS Labs to r/o deficiencies for fatigue Orders: Orders TSH reflex Free T4 Today R53.83 - Other fatigue Methylmalonic Acid Today G47.9 - Sleep disorder, unspecified, R53.83 - Other fatigue Homocysteine Today G47.9 - Sleep disorder, unspecified, R53.83 - Other fatigue Magnesium Today R53.83 - Other fatigue Vitamin B6 Today R20.0 - Anesthesia of skin, R20.2 - Paresthesia of skin Vitamin B1 Today R20.0 - Anesthesia of skin, R20.2 - Paresthesia of skin RT PSG in-lab sleep study Today G47.19 - Other hypersomnia Vitamin D 25-OH Total Today R53.83 - Other fatigue Vitamin B12 and Folate Today R53.83 - Other fatigue Ferritin Today R53.83 - Other fatigue IRON PROFILE Today G47.9 - Sleep disorder, unspecified, R53.83 - Other fatigue Patient Instructions: Sleep Hygiene provided: set a scheduled bedtime and wake time to help regulate the circadian rhythm and balance the release of pituitary hormones. Sleep in a dark room, temperatures below 68 degrees, and no devices n bed. Limit caffeinated products 6 hours prior to bed, and limit fluids 2-4 hours prior to bed. Gentle night yoga, diffusing essential oils, and playing soft music can be relaxing. Coding Level of Care Code New Pt Level 4 (65019) Diagnoses Excessive daytime sleepiness G47.19 Chronic fatigue R53.82 Fatigue type: chronic, unspecified Numbness and tingling of both feet R20.0; R20.2 Numbness and tingling of both legs R20.0; R20.2 Sleep Questionnaire Difficulty falling asleep: Yes Difficulty staying asleep?: Yes Number of arousals: 3 Snoring: Yes Witnessed apneas: Yes Gasping arousals: Yes Nocturia: No GERD: Yes Vivid dreams: No Acting out dreams: No Abnormal behavior in sleep: Yes Abnormal movements in sleep: Yes Morning headaches: No Excessive daytime sleepiness: No Daytime naps: No Restless legs: Yes Hallucinations: No Sleep paralysis: No Drop attacks: No Sleep Study: Yes CPAP: No
[2025-01-30 08:21] VITALS: BP 122/88; PULSE 63; O2SAT 99; BMI 27.7
== END 2025-01-30 09:23 | disposition home or self-care (01) ==
LOC: HO.HSMC 08:14
PROVIDERS: PCP Physician Assistant; Visit Provider Physician Assistant Medical
DX: G47.19 Other hypersomnia (principal); R53.82 Chronic fatigue, unspecified; R20.0 Anesthesia of skin; R20.2 Paresthesia of skin
CPT/HCPCS: 99204

== ENCOUNTER 2025-03-18 16:51 | Outpatient (REF) | payer BC, SELFPAY ==
[2025-03-18 17:32] LABS: Iron 103 mcg/dL (45-160); Magnesium 1.7 mg/dL (1.6-2.6); Percent Iron Saturation 35 % (15-50); Total Iron Binding Capacity 298 mcg/dL (228-428); Unsaturated Iron Binding 195 ug/dL
[2025-03-18 17:47] LABS: Ferritin 109 ng/mL (20-250)
[2025-03-18 18:00] LABS: Folate 3.5 ng/mL (> or = 4.0); Vitamin B12 244 pg/mL (200-900)
== END 2025-03-18 16:52 | disposition home or self-care (01) ==
LOC: HO.LAB 16:51
PROVIDERS: PCP Physician Assistant; Visit Provider Physician Assistant Medical
DX: Z13.21 Encounter for screening for nutritional disorder (principal); Z13.0 Encounter for screening for diseases of the blood and blood-forming organs and certain disorders involving the immune mechanism; R53.83 Other fatigue; R20.0 Anesthesia of skin; R20.2 Paresthesia of skin; G47.9 Sleep disorder, unspecified
CPT/HCPCS: 36415; 82306; 82607; 82728; 82746; 83090; 83540; 83735; 83921; 84207; 84425; 84443

== ENCOUNTER 2025-03-20 12:52 | Outpatient (REF) | payer BC, SELFPAY ==
[2025-03-20 14:33] LABS: MANUAL DIFF FLAG NO
[2025-03-20 14:36] LABS: Hematocrit 42.8 % (42.0-52.0); Hemoglobin 15.1 g/dl (14.0-18.0); Imm Gran Abs Auto 0.02 X10*3/uL (0.00-0.03); Imm Gran Pct Auto 0.5 % (0.0-0.4); Lymphocytes Absolute Auto 1.5 X10*3/uL (1.2-4.9); Mean Corpuscular HGB Conc 35.3 g/dl (31.0-36.0); Mean Corpuscular Hemoglobin 32.3 pg (27.0-33.0); Mean Corpuscular Volume 91.5 fL (80.0-98.0); NRBC Abs Auto 0.000 X10*3/uL (0.0-0.012); NRBC Pct Auto 0.0 /100WBC (0.0-0.2); Platelet Count 151 X10*3/uL (160-400); Red Blood Count 4.68 X10*6/uL (4.60-5.80); White Blood Count 3.8 X10*3/uL (4.8-10.8)
[2025-03-20 15:17] LABS: Alanine Aminotransferase 25 U/L (0-40); Albumin Level 4.6 g/dL (3.5-5.0); Alkaline Phosphatase 39 U/L (39-117); Anion Gap 11 (12-20); Aspartate Amino Transferase 28 U/L (5-37); Blood Urea Nitrogen 6 mg/dL (9-16); Calcium 9.4 mg/dL (8.4-10.2); Carbon Dioxide 31 mmol/L (22-29); Chloride 104 mmol/L (96-108); Cholesterol 167 mg/dL (<200); Estimated Glomerular Filt Rate > 60; HDL Cholesterol 34 mg/dL (>40); Potassium 4.0 mmol/L (3.3-5.1); Sodium 142 mmol/L (135-145); Total Protein 7.1 g/dL (6.5-8.0); Triglycerides 111 mg/dL (<150)
[2025-03-20 15:53] LABS: Ferritin 107 ng/mL (20-250)
== END 2025-03-20 12:53 | disposition home or self-care (01) ==
LOC: HO.WFDLDS 12:52
PROVIDERS: PCP Physician Assistant; Visit Provider Physician Assistant
DX: F41.1 Generalized anxiety disorder (principal); K74.60 Unspecified cirrhosis of liver; E83.19 Other disorders of iron metabolism; G47.00 Insomnia, unspecified; F98.8 Other specified behavioral and emotional disorders with onset usually occurring in childhood and adolescence; R59.0 Localized enlarged lymph nodes; F10.91 Alcohol use, unspecified, in remission
CPT/HCPCS: 36415; 80048; 80061; 80076; 82728; 85025

== ENCOUNTER 2025-03-20 12:52 | Outpatient (AMB) | payer BC, SELFPAY ==
--- NOTE | 2025-03-20 12:54 | MHC.PC.OV ---
Vital Signs 03/20/25 12:58 Height 6 ft 8 in Weight 257 lb 2 oz BMI 28.2 BP 134/88 Blood Pressure Location Lt brachial Position Sitting Respiration 14 Pulse 70 Pulse Source Pulse Oximeter Pulse Oximetry (%) 98 Oxygen Delivery Method Room Air Intake Visit Reasons: Med review /strattera Intake Note: Discuss medication to help focus. 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 HEENT: Has had a persistent enlarged lymph node on the right side of his neck x1 year. Psych: Has been referred to behavioral health for his anxiety and insomnia. He states that medications that have been tried have not been effective. He is scheduled for a sleep study. He would like to try hydroxyzine for sleep. He is open now to seeing a psychiatrist. He also would like to try Strattera to help him with his ADD. It used to help him in the past. GI: History of cirrhosis. He is following with GI. He is supposed to have an ultrasound this month but has not heard. I do not see anything ordered in the chart. He is also supposed to be scheduled for in an endoscopy. CV: He does not want to be on medication for cholesterol at this point. He has been working very hard on a low-fat diet and overall healthy diet Neuro: Following closely with Neurology. Has an upcoming appointment. [facility] Medical History GBS (Guillain [place] syndrome) Vitamin deficiency Steatosis, liver Snoring RLS (restless legs syndrome) Rib pain on right side PLMD (periodic limb movement disorder) Pleuritic pain Macrocytosis Insomnia Hyperlipidemia GERD (gastroesophageal reflux disease) JULIANNA (generalized anxiety disorder) Folic acid deficiency Elevated LFTs Elevated BP without diagnosis of hypertension Dyspnea Common bile duct stone Cirrhosis Celiac disease Axonal polyneuropathy ALT (SGPT) level raised Alcoholic hepatitis ADD (attention deficit disorder) Surgical History History of esophagogastroduodenoscopy (EGD) S/P laparoscopic cholecystectomy Social History Housing: House Alcohol intake: former Comment: quit 13 months ago Patient Tobacco Use Status: Never used Tobacco e-Cigarette/Vaping Use: Currently Using Second Hand Smoke Exposure: No service: No Current occupational status: employed 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 Current occupational exposures/hazards: No Cognitive needs: No Hearing needs: No Vision needs: No Questionnaire Thrive Questionnaire Date Thrive assessed: 01/09/25 I am a: Patient What is your living situation today?: I have a steady place to live Within the past 12 months, did the food you bought not last and you didn't have the money to get more?: Never true Within the past 12 months, did you worry whether your food would run out before you got money to buy more?: Never true Do you have trouble paying for medicines?: No Do you have trouble getting transportation to medical appointments?: No Do you have trouble paying your heating and electricity bill?: No Do you have trouble taking care of your child, family member or friend?: No Do you have trouble with day-to-day activities such as bathing, preparing meals, shopping, managing finances, etc.?: No Are you currently unemployed and looking for a job?: No Are you interested in more education?: Yes Please select the resources that you would like help with: None Currently or been in a relationship where the following occur: No concerns reported THRIVE Score: 0 Physical exam (Primary Care) Vital Signs: Last Vital Signs Pulse 70 03/20/25 12:58 Resp 14 03/20/25 12:58 BP 134/88 03/20/25 12:58 Pulse Ox 98 03/20/25 12:58 Oxygen Delivery Method Room Air 03/20/25 12:58 BMI result Body Mass Index 28.2 Tobacco/Smoking Status: Tobacco use Status Tobacco use date assessed 03/20/25 03/20/25 12:56 Patient Tobacco Use Status Never used Tobacco 03/20/25 12:56 e-Cigarette/Vaping Use Currently Using 03/20/25 12:56 Thrive Assessment: Date of Thrive Assessment Date Thrive assessed 01/09/25 03/20/25 12:56 Currently or been in a relationship where the following occur: No concerns reported Const Orientation/consciousness: patient oriented x3 HENMT Ears: hearing grossly normal bilaterally Neck Thyroid: Thyroid normal Lymphatic: lymphadenopathy (Right cervical) Resp Auscultation: clear to auscultation bilaterally Cardio Rate: regular rate Rhythm: regular rhythm Heart sounds: S1 normal heart sound present and S2 normal heart sound present GI Inspection: Yes normal to inspection Palpation (GI): Soft to palpation and Other GI palpation findings present (nontender, no cva tenderness) Auscultation: normoactive bowel sounds Rectal Exam - Male: Yes deferred Skin General skin exam: no rashes or lesions noted Neuro General: patient oriented x3, gait normal and no focal motor deficits Coding Level of Care Code Est Pt Level 4 (52748) Complex EM visit Add On G2211 Diagnoses ADD (attention deficit disorder) F98.8 JULIANNA (generalized anxiety disorder) F41.1 Insomnia G47.00 LAD (lymphadenopathy) of right cervical region R59.0 Assessment & Plan Assessment & Plan (1) ADD (attention deficit disorder): Code(s): F98.8 - Other specified behavioral and emotional disorders with onset usually occurring in childhood and adolescence Category: Medical Plan: We will try Strattera (2) JULIANNA (generalized anxiety disorder): Code(s): F41.1 - Generalized anxiety disorder Category: Medical Plan: As above (3) Insomnia: Code(s): G47.00 - Insomnia, unspecified Category: Medical Plan: Hydroxyzine ordered to use as needed (4) LAD (lymphadenopathy) of right cervical region: Code(s): R59.0 - Localized enlarged lymph nodes Category: Medical Plan: Neck ultrasound and labs Plan Advised to call GI for the ultrasound and endoscopy appointment Orders: Orders US soft tiss head and/or neck Today R59.0 - Localized enlarged lymph nodes Referrals Psychiatry Referral 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
[2025-03-20 12:58] VITALS: BP 134/88; PULSE 70; RESP 14; O2SAT 98; BMI 28.2
== END 2025-03-20 13:18 | disposition home or self-care (01) ==
LOC: HO.HMCFM 12:53
PROVIDERS: PCP Physician Assistant; Visit Provider Physician Assistant
DX: F98.8 Other specified behavioral and emotional disorders with onset usually occurring in childhood and adolescence (principal); F41.1 Generalized anxiety disorder; G47.00 Insomnia, unspecified; R59.0 Localized enlarged lymph nodes

== ENCOUNTER 2025-05-06 13:59 | Outpatient (AMB) | payer BC, SELFPAY ==
[2025-05-06 14:04] VITALS: BP 128/88; PULSE 74; O2SAT 98; BMI 28.8
--- NOTE | 2025-05-06 14:04 | A.OFFVIS_ITS ---
Vital Signs 05/06/25 14:04 Height 6 ft 8 in Weight 262 lb 6 oz BMI 28.8 BP 128/88 Blood Pressure Location Lt brachial Position Sitting Pulse 74 Pulse Source Pulse Oximeter Pulse Oximetry (%) 98 Oxygen Delivery Method Room Air Intake Visit Reasons: 3 mo follow up Intake Note: Patient presents follow up [facility]. Labs in chart. No PSG. Allergies gluten Allergy (Unknown, Verified 05/06/25 14:06) Unknown HPI Comments Details: 39 year old male with h/o GBS post covid presents for sleep apnea evaluation. HST is pending will f/u, labs reviewed with pt today. [facility] Feb 2022 to Jun 2022 hospitalized for GBS, post 2nd covid vaccination (moderna). he was started on IVIG and then discharged 3 months later. He lost 35lbs. 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 He started drinking alcohol and sleep aides to help him sleep during the day. He snores loudly, gasps for air and will wake himself up multiple times a night. He has RLS, kicking, flailing and thrashing behavior at night. His entire body jerks and he wakes himself up due to an uncomfortable sensation in his calves bilaterally. He wake up and stretches his legs, and kneads the soles of his feet, calves and legs as they always feel stiff, tight, and worse at night. He denies pins, needles, burning or tingling in his feet. 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 He can be emotionally overwhelmed, though his mood is usually stable. He denies morning headaches. He has tried, taking 4- 10mg melatonin gummies, with z-quil, L thianine, Unisom 40mg po at bedtime and continues to have fragmented sleep patterns. He denies smoking, currently vapes, denies alcohol for over 9 months now. He is being followed by GI for varices and liver cirrhosis. [facility] Medical History GBS (Guillain [place] syndrome) Vitamin deficiency Steatosis, liver Snoring RLS (restless legs syndrome) Rib pain on right side PLMD (periodic limb movement disorder) Pleuritic pain Macrocytosis Insomnia Hyperlipidemia GERD (gastroesophageal reflux disease) JULIANNA (generalized anxiety disorder) Folic acid deficiency Elevated LFTs Elevated BP without diagnosis of hypertension Dyspnea Common bile duct stone Cirrhosis Celiac disease Axonal polyneuropathy ALT (SGPT) level raised Alcoholic hepatitis ADD (attention deficit disorder) Surgical History History of esophagogastroduodenoscopy (EGD) S/P laparoscopic cholecystectomy Social History Housing: House Alcohol intake: former Comment: quit 13 months ago Patient Tobacco Use Status: Never used Tobacco e-Cigarette/Vaping Use: Currently Using Second Hand Smoke Exposure: No service: No Current occupational status: employed 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 Current occupational exposures/hazards: No Cognitive needs: No Hearing needs: No Vision needs: No Physical Exam Vital Signs: Last Vital Signs Pulse 74 05/06/25 14:04 BP 128/88 05/06/25 14:04 Pulse Ox 98 05/06/25 14:04 Oxygen Delivery Method Room Air 05/06/25 14:04 BMI result Body Mass Index 28.8 Const Other: well mannered pleasant male General: cooperative, comfortable and no acute distress Nutritional Appearance: average body habitus Orientation/consciousness: patient oriented x3 HEENT Face and sinus: Yes face symmetric Teeth and gingiva: other (mallampti score is 3) Throat: Yes other (Mallampti score is 3) Eyes Pupils: Equal, round and reactive pupils present Neck Neck: Yes full ROM Resp Effort & Inspection: normal respiratory effort and able to speak in complete sentences Neuro General: patient oriented x3 and moves all extremities Cranial nerves: Yes Equal, round and reactive pupils present, Yes Normal accommodation reflex present, Yes Nystagmus not present, Yes Normal facial strength present, Yes Midline tongue present, Yes Symmetric palate elevation present, Yes Ability to bilaterally rotate head present and Yes Ability to bilaterally elevate shoulders present Cognition (Neuro): normal cognition Gait exam (Neuro): Normal gait present Motor exam (neuro): 5/5 motor strength present throughout and Normal motor muscle tone present throughout Psych Appearance: grossly normal Mental Status: mental status grossly normal Attitude: cooperative Thought process: Normal thought process present Thought content: Normal thought content present Results Reviewed Results Reviewed: Liver Elastography reviewed 09/2024, f/u with GI for Nodular findings and U/S, Endoscopy for varices. HST pending 05/07/2025 Labs reviewed today Folate is low, Homocysteine is High MMA is normal B12 is 244, can ranged between 300-900. TSH normal Ferritin is normal, HDL is low, T.Caesar 2.3 and DBilli is high, not significant. Assessment & Plan Assessment & Plan (1) Excessive daytime sleepiness: Code(s): G47.19 - Other hypersomnia Category: Medical (2) Fatigue: Code(s): R53.83 - Other fatigue Category: Medical Qualifiers: Fatigue type: chronic, unspecified Qualified Code(s): R53.82 - Chronic fatigue, unspecified (3) Numbness and tingling of both feet: Code(s): R20.0 - Anesthesia of skin; R20.2 - Paresthesia of skin Category: Medical (4) Numbness and tingling of both legs: Code(s): R20.0 - Anesthesia of skin; R20.2 - Paresthesia of skin Category: Medical Plan HST to r/o OMID will f/u wiht PSG to r/o PLMS, kicking flailing thrashing at night. R/O RLS / PLMD? numbness tingling of bilateral lower extremities with stiffness and Axonal polyneuropathy? H/O GBS Will send for EMG /NCS if not improved with daily cpap use. Labs to reviewed with pt. Start B12 1000mcg sub-lingual disintegration. B12 is 244, low. Normal range is 300-900. Vitamin d 1000units daily. Magnesium 200-400mg po daily for RLS / sleep, may hold for loose stools or take every other day. F/U in 2 months Medications: New mecobalamin (vitamin B12) place tablet under tongue and allow to dissolve for at least30 secs before swallowing 1,000 mcg sublingual BEDTIME 90 tabs 0RF 3 months Refilled magnesium oxide 400 mg PO DAILY 90 caps 3RF cholecalciferol (vitamin D3) 25 mcg PO DAILY 90 tabs 0RF low vitamin d 3 months MDD 25mcg R79.89 - Other specified abnormal findings of blood chemistry Patient Instructions: Sleep Hygiene provided: set a scheduled bedtime and wake time to help regulate the circadian rhythm and balance the release of pituitary hormones. Sleep in a dark room, temperatures below 68 degrees, and no devices n bed. Limit caffeinated products 6 hours prior to bed, and limit fluids 2-4 hours prior to bed. Gentle night yoga, diffusing essential oils, and playing soft music can be relaxing. Coding Level of Care Code Est Pt Level 4 (68305) Diagnoses Excessive daytime sleepiness G47.19 Chronic fatigue R53.82 Fatigue type: chronic, unspecified Numbness and tingling of both feet R20.0; R20.2 Numbness and tingling of both legs R20.0; R20.2
== END 2025-05-06 14:42 | disposition home or self-care (01) ==
LOC: HO.HSMS 14:00
PROVIDERS: PCP Physician Assistant; Visit Provider Physician Assistant Medical
DX: G47.19 Other hypersomnia (principal); R53.82 Chronic fatigue, unspecified; R20.0 Anesthesia of skin; R20.2 Paresthesia of skin
CPT/HCPCS: 99214